=== PATIENT | female | born 1995 | race Caucasian/White ===

== ENCOUNTER 2016-07-21 17:28 | Emergency (ER) | payer BC, MEDICAID ==
[~2016-07-21] VITALS: Ht 160 cm; Wt 59.0 kg
[~2016-07-21 17:28] MED LIST: ALBU17AE3; CEPH-507 PO; CETI10TA17 PO; FLT05NA16; HYDR-757 PO; INDO25CA PO; LEVE500T99 PO; MELO7.5T46 PO; MNTL10T PO; NAPR500T PO; OMEP40CA36 PO; PRD20T PO; SERT25TA PO; SULF1TAB38 PO; TOPI100T PO; TPR100T PO
--- OUTSIDE RECORDS SUMMARY | 2016-07-21 17:33 | XMS REPORT | Continuity of Care Document ---
Author Author [facility] Organization [facility] Address Unknown Phone Unavailable Care Team Providers Care Chemicals Distiller Name Role Phone NO, LOCAL PHYSICIAN PCP Unavailable Advance Directives Directive Response Recorded Date/Time Advance Directives No 12/18/15 3:04pm Organ Donor No 12/18/15 3:04pm Resuscitation Status Full Code 12/18/15 3:04pm Chief Complaint and Reason for Visit Chief Complaint Lower Extremity Reason for Visit Internal derangement of right knee Problems Active Problems Medical Problem Onset Date Status Contusion of foot Unknown Acute Internal derangement of right knee Unknown Acute Traumatic hematoma of foot Unknown Acute Medications Current Home Medications Medication Dose Units Route Directions Days/Qty Instructions Start Date Meloxicam 7.5 Mg 7.5 Mg Oral Daily 30 12/18/15 Past Home Medications Medication Directions Ordered Status Hydrocodone Bit/Acetaminophen 1 Each Tablet, 1 Ea Oral Every 6 Hours as needed for Severe Pain 11/29/14 Discontinued Social History Social History Problem Response Recorded Date/Time Alcohol Use Denies Use 12/18/2015 3:04pm Recreational Drug Use No 12/18/2015 3:04pm Recent Foreign Travel No 12/18/2015 3:04pm Recent Infectious Disease Exposure No 12/18/2015 3:04pm Hospitalization with Isolation Denies 12/18/2015 3:04pm Smoking Status Never a Smoker 12/18/2015 3:04pm Query Response Start Date Stop Date Smoking Status Never a Smoker Hospital Discharge Instructions No hospital discharge instructions. Plan of Care Discharge Date 12/18/15 3:39pm Disposition 01 HOME, SELF-CARE Condition at Discharge Improved Instructions/Education Provided NO INSTRUCTIONS GIVEN Prescriptions See Medication Section Referrals CHRISTOPH ALVAREZ MD, RICHARD A DO - NO,LOCAL PHYSICIAN - Primary Care Physician YOLI VILLEDA FLOYD R MD - MARILYN,KEENAN Wick MD - Additional Instructions/Education 1. Call one of the physicians listed to make an appointment to be seen to schedule a MRI of your knee 2. Medication as directed 3. All discharge instructions reviewed with patient and/or family. Voiced understanding. Functional Status No functional status results. Allergies, Adverse Reactions, Alerts Allergen Type Severity Reaction Status Last Updated paroxetine ([id number]) Allergy Unknown Active 11/29/14 Latex Allergy Unknown Active 11/03/10 Immunizations No immunization records. Vital Signs Acute Vital Signs Vital Response Date/Time Temperature (Fahrenheit) 97.4 degrees F (97.6 - 99.5) 12/18/2015 3:04pm Temperature (Calculated Celsius) 36.98981 degrees C (36.4 - 37.5) 12/18/2015 3:04pm Temperature Source Temporal 12/18/2015 3:04pm Pulse Rate (Adolescent 12-19yrs) 108 bpm (56 - 106) 12/18/2015 3:39pm O2 Sat by Pulse Oximetry 98 % (88 - 100) 12/18/2015 3:39pm Respiratory Rate (Adolescent 12-19yrs) 20 bpm (15 - 20) 12/18/2015 3:39pm Blood Pressure / Blood Pressure Systolic (Adolescent 12-19yrs) 121 mm Hg (115 - 120) 2015 3:39pm Pain Pain Intensity 10 12/18/2015 3:04pm Height (Feet) 5 feet 12/18/2015 3:04pm Height (Inches) 4 inches 12/18/2015 3:04pm Height (Calculated Centimeters) 162.096073 cm 12/18/2015 3:04pm Weight (Pounds) 139 pounds 12/18/2015 3:04pm Weight (Calculated Kilograms) 63.900727 kilograms 12/18/2015 3:04pm Calculated BMI 23.86 12/18/2015 3:04pm Results No known relevant diagnostic tests, laboratory data and/or discharge summary. Procedures No known history of procedures. Encounters Encounter Location Arrival/Admit Date Discharge/Depart Date Attending Provider Departed Emergency Room [facility] 12/18/15 2:57pm 12/17 3:39pm DEIRDRE CORDON APRN Registered Referred [facility] 12/09/15 3:27pm MATIAS RUANO Recent Diagnosis
[2016-07-21] MEDS ORDERED: BUPIVACAINE 0.5% 30 ML (SENSORCAINE) VIAL ONE (17:39)
[2016-07-21] MEDS ORDERED: TRIM/SULFAMETH 160/800 (SEPTRA DS) TAB PO ONE (17:45)
[2016-07-21] MEDS ORDERED: BUPIVACAINE 0.5% 30 ML (SENSORCAINE) VIAL INJ ONE (17:45)
[2016-07-21] MEDS ORDERED: SULF1TAB35 PO (17:46)
--- NOTE | 2016-07-21 17:46 | ED Upper Extremity ---
General Stated Complaint: FINGER INFECTION Source: patient Exam Limitations: no limitations History of Present Illness Time seen by provider: 17:44 Initial Comments Pain redness and swelling to the left thumb for 1.5 weeks. No known infection. She states that she has intermittently drained pus from this. Onset: last week Severity: moderate Pain/Injury Location: left thumb Method of Injury: unknown Modifying Factors: Worse With Movement Allergies and Home Medications Allergies Coded Allergies: latex (Unverified Allergy, Unknown, 11/03/10) paroxetine (Unverified Allergy, Unknown, 11/29/14) Home Medications Naproxen 500 Mg Tablet #30 500 MG PO BID Prescribed by: DEIRDRE CORDON on 03/03/16 1949 Sulfamethoxazole/Trimethoprim 1 Each Tablet #14 1 EACH PO BID Prescribed by: DEIRDRE CORDON on 07/21/16 1746 Topiramate 100 Mg Tablet 100 MG PO BID (Reported) Constitutional: see HPI EENTM: see HPI Respiratory: no symptoms reported Cardiovascular: no symptoms reported Genitourinary: no symptoms reported Musculoskeletal: no symptoms reported Skin: no symptoms reported Psychiatric/Neurological: No Symptoms Reported Past Ivmghpe-Iahkhk-Iiauxa Hx Patient Social History Recent Foreign Travel: No Contact w/Someone Who Travel: No Recent Hopitalizations: No Immunizations Up To Date Tetanus Booster (TDap): Less than 5yrs PED Vaccines UTD: Yes Seasonal Allergies Seasonal Allergies: No Surgeries HX Surgeries: Yes (RT KNEE SCOPE, EGD) Surgeries: Orthopedic Respiratory Hx Respiratory Disorders: No Cardiovascular Hx Cardiac Disorders: No Neurological Hx Neurological Disorders: Yes (essential tremors) Neurological Disorders: Seizure Disorder Reproductive System Hx Reproductive Disorders: No Genitourinary Hx Genitourinary Disorders: No Gastrointestinal Hx Gastrointestinal Disorders: No Musculoskeletal Hx Musculoskeletal Disorders: No Endocrine Hx Endocrine Disorders: No HEENT HX ENT Disorders: No Cancer Hx Cancer: No Psychosocial Hx Psychiatric Problems: Yes Behavioral Health Disorders: Depression Integumentary HX Skin/Integumentary Disorder: No Blood Transfusions Hx Blood Disorders: No Physical Exam Vital Signs Vital Sign - Last 12Hours 07/21/16 07/21/16 17:48 17:57 Temp 98.3 Pulse 70 Resp 16 B/P 132/70 O2 Delivery Room Air Capillary Refill : General Appearance: WD/WN no apparent distress HEENT: PERRL/EOMI normal ENT inspection Neck: non-tender full range of motion Respiratory: no respiratory distress no accessory muscle use Elbow/Forearm: normal inspection, non-tender, no evidence of injury Wrist: Yes normal inspection, Yes non-tender, Yes no evidence of injury Hand: Left, swelling (erythema and fluctuance over the eponychial/paronychIUM of left thumb) Neurologic/Psychiatric: alert normal mood/affect oriented x 3 Skin: normal color warm/dry I&D : Blade Size: 11 Progress Digital block done using 2 mL of 0.5 percent Marcaine without epinephrine. Incision was then made with 11 blade scalpel over the most fluctuant portion of this paronychia. Culture was collected and sent to lab so there was really no purulence expressed. Area then covered with gauze and Coban. Progress/Results/Core Measures Results/Orders My Orders Orders-DEIRDRE CORDON APRN Wound Culture (07/21/16 17:43) Bupivacaine 0.5% Injection (Sensorcaine (07/21/16 17:45) Sulfamethoxazole/Trimet Ds Tab (Bactrim (07/21/16 17:45) Bupivacaine 0.5% Injection (Sensorcaine (07/21/16 17:39) Medications Given in ED Current Medications Medications Dose Ordered Sig/Esther Route Start Time Stop Time Status Last Admin Dose Admin Bupivacaine HCl 30 ml STK-MED ONCE .ROUTE 07/21/16 17:39 07/21/16 17:46 DC 07/21/16 17:48 30 ML Vital Signs/I&O Vital Sign - Last 12Hours 07/21/16 07/21/16 17:48 17:57 Temp 98.3 97.5 Pulse 70 Resp 16 B/P 132/70 O2 Delivery Room Air Departure Impression Impression: Primary Impression: Paronychia of finger Qualified Code: L03.012 - Cellulitis of left finger Disposition: 01 HOME, SELF-CARE Condition: Stable Departure-Patient Inst. Decision time for Depature: 17:45 Referrals: NO,LOCAL PHYSICIAN (PCP/Family) Primary Care Physician Patient Instructions: Paronychia Add. Discharge Instructions: 1. Return to ER for any concerns 2. Follow-up with your doctor next week 3. Antibiotics as directed Scripts Sulfamethoxazole/Trimethoprim (Bactrim Ds Tablet)1 Each Tablet1 Each PO BID #14 TAB Prov:DEIRDRE CORDON APRN 07/21/16 DEIRDRE CORDON APRN 12, 2017 17:46
[2016-07-21 18:15] VITALS: BP 128/70
== END 2016-07-21 18:15 | disposition home or self-care (01) ==
LOC: EDUNIT# 17:28 → ER 17:30
DX: L03.012 Cellulitis of left finger (principal)
CPT/HCPCS: 10060; 64450; 87070; 87077; 87186; 87205

== ENCOUNTER → 2017-04-19 | Outpatient (CLI) | payer OTHER ==
[~2017-04-19] MED LIST changes: +SULF1TAB35 PO
--- NOTE | 2017-04-19 16:30 | Diagnostic Imaging Report ---
First trimester OB ultrasound. INDICATION: Spotting. FINDINGS: There is a normal-appearing single intrauterine . An embryo is seen with cardiac activity at 174 beats per minute. The crown-rump length is at 10 weeks and 5 days. RONEN is 11/10/17. IMPRESSION: Live single intrauterine . Dictated by: Dictated on workstation # [id number]
== END ==
LOC: RAD 15:19
PROVIDERS: ATTEND Family Medicine
DX: O46.91 Antepartum hemorrhage, unspecified, first trimester (principal); Z3A.10 10 weeks gestation of pregnancy
CPT/HCPCS: 76801

== ENCOUNTER → 2017-06-12 | Outpatient (CLI) | payer MEDICAID ==
[~2017-06-12] MED LIST changes: +METO5TAB75 PO
--- NOTE | 2017-06-12 16:16 | Diagnostic Imaging Report ---
INDICATION: survey. TECHNIQUE: Multiple real-time grayscale images were obtained over the gravid uterus. COMPARISON: 04/19/2017 FINDINGS: heart rate is 143 beats per minute. The amniotic fluid is normal. The placenta is fundal and anterior with no placenta previa. The lower uterine segment demonstrates closed cervix, 4.3 cm in length. The cord insertion, stomach, bladder, two umbilical arteries, posterior fossa and lateral ventricles appear unremarkable. The four-chamber view demonstrates a tiny mild focus of hypodensity which could relate to an echogenic focus of the left ventricle, a soft marker for aneuploidy. The upper and mid spine is normal in appearance. The lower spine is not well demonstrated. The maternal adnexa are obscured by bowel gas. Biometrical measurements are as follows: Biparietal 4.33 cm, age 19 weeks 1 days. Head circumference 15.90 cm, age 18 weeks 6 days. Abdominal circumference 12.26 cm, age 18 weeks 0 days. Femur length 2.90 cm, age 19 weeks 0 days. Sonographic estimate age: 18 weeks 6 days. Sonographic estimated date of delivery: 11-07-17. Estimated Weight: 240 gm (+/- 35 gm). LMP percentile: 46%. heart rate: 143 beats per minute. number: 1 of 1. IMPRESSION: 1. The lower most aspect of the spine is not well demonstrated due to position. A followup exam is recommended within 2 weeks to reevaluate. 2. Questionable tiny echogenic focus in the left ventricle. This is a soft marker that could be associated with aneuploidy. Correlate clinically. Dictated by: Dictated on workstation # [id number]
== END ==
LOC: RAD 12:57
PROVIDERS: ATTEND Family Medicine
DX: Z34.92 Encounter for supervision of normal pregnancy, unspecified, second trimester (principal); Z3A.18 18 weeks gestation of pregnancy
CPT/HCPCS: 76805

== ENCOUNTER 2017-06-23 19:38 | Outpatient (CLI) | payer MEDICAID ==
[~2017-06-23] VITALS: Ht 160 cm; Wt 56.8 kg
[~2017-06-23 19:38] MED LIST changes: +NAPR-1071 PO; -NAPR500T PO
--- OUTSIDE RECORDS SUMMARY | 2017-06-23 19:44 | XMS REPORT ---
Author Author ISRAEL DOWNEY Organization [facility] Address [address] [place] [address] Care Team Providers Care Route Aide Name Role Phone ISRAEL DOWNEY Unavailable PROBLEMS Type Condition ICD9-CM Code ISJ32-HE Code Onset Dates Condition Status SNOMED Code Problem Seasonal allergic rhinitis, unspecified allergic rhinitis trigger J30.2 Active 487707853 Problem Other chronic pain G89.29 Active 63134114 ALLERGIES Substance Reaction Event Type Date Status latex Unknown Non Drug Allergy November, Active SOCIAL HISTORY Never Assessed PLAN OF CARE Activity Details Follow Up prn Reason: VITAL SIGNS Height 63 in 2016-12-02 Weight 130.2 lbs 2016-12-02 Temperature 98.8 degrees Fahrenheit 2016-12-02 Heart Rate 84 bpm 2016-12-02 Respiratory Rate 22 2016-12-02 BMI 23.06 kg/m2 2016-12-02 Blood pressure systolic 100 mmHg 2016-12-02 Blood pressure diastolic 70 mmHg 2016-12-02 MEDICATIONS Unknown Medications RESULTS Name Result Date Reference Range A1C 2016-12-02 Hemoglobin A1c 5.4 4.8-5.6 CBC 2016-12-02 WBC 7.2 3.4-10.8 RBC 4.34 3.77-5.28 Hemoglobin 13.7 11.1-15.9 Hematocrit 41.1 34.0-46.6 MCV 95 79-97 MCH 31.6 26.6-33.0 MCHC 33.3 31.5-35.7 RDW 13.1 12.3-15.4 Platelets 369 150-379 Neutrophils 53 Lymphs 34 Monocytes 9 Eos 2 Basos 1 Neutrophils (Absolute) 3.9 1.4-7.0 Lymphs (Absolute) 2.4 0.7-3.1 Monocytes(Absolute) 0.6 0.1-0.9 Eos (Absolute) 0.1 0.0-0.4 Baso (Absolute) 0.1 0.0-0.2 Immature Granulocytes 1 Immature Grans (Abs) 0.0 0.0-0.1 CMP 2016-12-02 Glucose, Serum 91 65-99 BUN 10 6-20 Creatinine, Serum 0.58 0.57-1.00 eGFR If NonAfricn Am 133 >59 eGFR If Africn Am 153 >59 BUN/Creatinine Ratio 17 9-23 Sodium, Serum 139 134-144 Potassium, Serum 4.6 3.5-5.2 Chloride, Serum 102 96-106 Carbon Dioxide, Total 22 18-29 Calcium, Serum 9.4 8.7-10.2 Protein, Total, Serum 6.4 6.0-8.5 Albumin, Serum 4.5 3.5-5.5 Globulin, Total 1.9 1.5-4.5 A/G Ratio 2.4 1.2-2.2 Bilirubin, Total 0.6 0.0-1.2 Alkaline Phosphatase, S 54 39-117 AST (SGOT) 12 0-40 ALT (SGPT) 7 0-32 PROCEDURES Procedure Date Ordered Result Body Site GLYCATED HEMOGLOBIN TEST December 02, 2016 COMPLETE CBC W/AUTO DIFF WBC December 02, 2016 COMPREHEN METABOLIC PANEL December 02, 2016 VENIPUNCT, ROUTINE* December 02, 2016 IMMUNIZATIONS No Known Immunizations MEDICAL (GENERAL) HISTORY Type Description Date Medical History epilepsy Medical History asthma Medical History diabetes type 1 Surgical History Right knee scope Surgical History EGD 2012 Surgical History tonsilectomy Surgical History wisdom teeth Hospitalization History wisdom teeth Hospitalization History grand mal seizure x 1 week in 2nd grade
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
[2017-06-23 20:12] VITALS: BP 118/64
[2017-06-23 20:18] LABS: BILIRUBIN,URINE NEGATIVE (NEGATIVE); KETONES,URINE NEGATIVE (NEGATIVE); LEUKOCYTE ESTERASE ,URINE 1+ (NEGATIVE); NITRITE,URINE NEGATIVE (NEGATIVE); PH,URINE 7 (5-9); PROTEIN,URINE NEGATIVE (NEGATIVE); UROBILINOGEN,URINE NORMAL (NORMAL)
[2017-06-23] MEDS ORDERED: PREN-142 PO (20:27)
[2017-06-23 20:29] LABS: WBC,URINE RARE /HPF
--- NOTE | 2017-06-28 11:18 | Physician Query-Final Dx ---
MARILYNN LAURA 06/28/17 1118: Clinic Account Progress/Dx Physician Query: Please give diagnosis Date of Service Jun 23, 2017 at 19:54 ZOFIA ARGUETA MD 07/06/17 0740: Clinic Account Progress/Dx DIAGNOSIS: Diagnosis 1. Decreased movement 2. IUP at 24 weeks. MARILYNN LAURA Jun 28, 2017 11:18 ZOFIA ARGUETA MD Jul 06, 2017 07:40
== END 2017-06-23 20:50 | disposition home or self-care (01) ==
LOC: EDUNIT# 19:38 → ER 19:40 → EDSTATUS 19:54 → WSo 19:54 → LDRP 19:55 → WSo 20:50
PROVIDERS: ATTEND Family Medicine
DX: O36.8120 Decreased fetal movements, second trimester, not applicable or unspecified (principal); Z3A.24 24 weeks gestation of pregnancy
CPT/HCPCS: 81000; 99212

== ENCOUNTER 2017-08-02 16:24 | Emergency (ER) | payer MEDICAID ==
[~2017-08-02] VITALS: Ht 160 cm; Wt 59.0 kg
[~2017-08-02 16:24] MED LIST changes: +PREN-142 PO
--- NOTE | 2017-08-02 16:48 | ED GI ---
General Chief Complaint: Rect Problems Stated Complaint: HEMROID History of Present Illness Date Seen by Provider: Aug 02, 2017 Time Seen by Provider: 16:50 Initial Comments 22-year-old female Patient is 26 weeks gestation. She reports no bowel movement for 10 days. She is having mild abdominal pain. She is feeling movement approximately every 4 hours. She has some lactose intolerance and usually has diarrhea after drinking milk. She is taking a vitamin, it is the same one she has been taking since beginning of the . She has no history of hemorrhoids in the past, she noticed tenderness and fullness, with external hemorrhoid present yesterday. She attempted to see Dr. Argueta today and was referred to the emergency department. She is concerned the hemorrhoid is "blocking ability to pass stools." Timing/Duration: Other (10 days) Allergies and Home Medications Allergies Coded Allergies: divalproex sodium (Verified Allergy, Unknown, 06/23/17) latex (Unverified Allergy, Unknown, 11/03/10) paroxetine (Unverified Allergy, Unknown, 11/29/14) Home Medications Metoclopramide HCl 5 Mg Tablet, 5 MG PO Q6H PRN for NAUSEA/VOMITING-1ST LINE for 30 Days, #90 Prescribed by: BELINDA AKINS on 05/12/17 0843 Vit No.124/Iron/FA 1 Each Tablet, 1 EACH PO DAILY, (Reported) Review of Systems Constitutional: no symptoms reported, see HPI Gastrointestinal: See HPI, Abdominal Pain, Constipated, Other (external hemorrhoid) All Other Systems Reviewed Negative Unless Noted: Yes Past Ukenjxv-Aygpiz-Ojlxfu Hx Patient Social History Recent Foreign Travel: No Contact w/Someone Who Travel: No Recent Hopitalizations: No Immunizations Up To Date Tetanus Booster (TDap): Less than 5yrs PED Vaccines UTD: Yes Date of Influenza Vaccine: Feb 21, 2017 Seasonal Allergies Seasonal Allergies: No Surgeries Surgeries: Orthopedic Neurological Neurological Disorders: Seizure Disorder Reproductive System Hx Reproductive Disorders: No Psychosocial Behavioral Health Disorders: Depression Reviewed Nursing Assessment Reviewed/Agree w Nursing PMH: Yes Physical Exam Vital Signs VS - Last 72 Hours, by Label 08/02/17 16:51 Temp 98.1 Pulse 70 Resp 16 B/P (MAP) 100/50 (67) Pulse Ox 98 O2 Delivery Room Air Capillary Refill : General Appearance: WD/WN, no apparent distress Respiratory: chest non-tender, lungs clear, normal breath sounds Cardiovascular: normal peripheral pulses, regular rate, rhythm, no murmur Gastrointestinal: normal bowel sounds, non tender, soft, distended (compatible with third trimester ), No rebound Rectal: normal exam, normal rectal tone, hemorrhoids (0.5 cm, tender, non- inflammed, soft, right external. No impacted stool in rectum ), tenderness Extremities: normal range of motion, non-tender, no calf tenderness, normal capillary refill Neurologic/Psychiatric: no motor/sensory deficits, alert, normal mood/affect, oriented x 3 Skin: normal color, warm/dry Progress/Results/Core Measures Results/Orders Vital Signs/I&O Vital Sign - Last 12Hours 08/02/17 16:51 Temp 98.1 Pulse 70 Resp 16 B/P (MAP) 100/50 (67) Pulse Ox 98 O2 Delivery Room Air Progress Note : Time: 16:50 Progress Note Initial evaluation, heart tones 140s to 150s. 1700 discussed at length with the patient and her mother the importance of increasing fluid in her diet, high fiber diet, xdpr-wdr-zwutjga hydrocortisone for inflamed hemorrhoid, stool softener, warm moist compresses, and avoid straining. Sits baths were recommended, the patient reports that she does not have a bath tub. Discharge instructions and return precautions reviewed at length with the patient and her mother, all questions answered. Departure Impression Impression: Primary Impression: Constipation during Qualified Codes: O99.613 - Diseases of the digestive system complicating , third trimester; K59.00 - Constipation, unspecified Additional Impression: Hemorrhoid Qualified Codes: K64.0 - First degree hemorrhoids Disposition: 01 HOME, SELF-CARE Condition: Stable Departure-Patient Inst. Decision time for Depature: 17:15 Referrals: ZOFIA ARGUETA MD (PCP/Family) Primary Care Physician Patient Instructions: Constipation, Adult (DC), Hemorrhoids (DC), High Fiber Diet Add. Discharge Instructions: Increase water intake while awake, 16 ounces every 2 hours. Ambulates 10 minutes every hour while awake. Warm moist compresses to hemorrhoid, 10 minutes every 2 hours. Increase high-fiber foods in diet. Colace snug-eth-idbasij stool softener, 1 tablet twice daily until having regular stools. Avoid straining or sitting on toilet for prolonged period of time. Hydrocortisone cream, applied to hemorrhoid 3-4 times daily. Follow-up with Dr. Argueta if no improvement in symptoms in the next 2 days. Return to emergency department for increased abdominal pain, lack of movement, vaginal bleeding or discharge, or new problems. All discharge instructions reviewed with patient and/or family. Voiced understanding. Copy Copies To 1: ZOFIA ARGUETA MD, AMY ARNP Aug 02, 2017 16:48
[2017-08-02 17:25] VITALS: BP 100/50
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
== END 2017-08-02 17:25 | disposition home or self-care (01) ==
LOC: EDUNIT# 16:24 → ER 16:25
DX: O99.612 Diseases of the digestive system complicating pregnancy, second trimester (principal); K64.8 Other hemorrhoids; O99.342 Other mental disorders complicating pregnancy, second trimester; F32.9 Major depressive disorder, single episode, unspecified; O99.352 Diseases of the nervous system complicating pregnancy, second trimester; G40.909 Epilepsy, unspecified, not intractable, without status epilepticus; Z3A.26 26 weeks gestation of pregnancy
CPT/HCPCS: 99282

== ENCOUNTER → 2017-08-24 | Outpatient (CLI) | payer MEDICAID | LOC: LAB 08:08 | PROVIDERS: ATTEND Family Medicine | DX: Z34.93 Encounter for supervision of normal pregnancy, unspecified, third trimester (principal) | CPT/HCPCS: 36415; 82951; 82952; 82962 ==

== ENCOUNTER → 2017-08-31 | Outpatient (CLI) | payer MEDICAID ==
--- NOTE | 2017-08-31 15:25 | Diagnostic Imaging Report ---
INDICATION: Followup heart and spine. TECHNIQUE: Multiple real-time grayscale images were obtained over the gravid uterus. COMPARISON: 06/12/2017. FINDINGS: There is a single live fetus in a cephalic presentation. The placenta is posterior. The amniotic fluid volume is normal. heart rate was recorded at 143 beats per minute. spine is unremarkable on today's study. The previously noted echogenic focus in the left ventricle is not appreciated on today's exam. Biometrical measurements are as follows: Biparietal 7.9 cm, age 31 weeks 4 days. Head circumference 28.4 cm, age 31 weeks 1 days. Abdominal circumference 26.0 cm, age 30 weeks 2 days. Femur length 5.5 cm, age 29 weeks 0 days. Sonographic estimate age: 30 weeks 4 days. Sonographic estimated date of delivery: 11/05/17. Estimated Weight: 1485 gm (+/- 217 gm). LMP percentile: 40%. heart rate: 143 beats per minute. number: 1 of 1. IMPRESSION: Single live IUP of approximately 30-31 weeks gestational age demonstrating normal interval growth when compared with prior exam. spine and heart are unremarkable on today's exam. Dictated by: Dictated on workstation # [id number]
== END ==
LOC: RAD 11:58
PROVIDERS: ATTEND Family Medicine
DX: Z34.93 Encounter for supervision of normal pregnancy, unspecified, third trimester (principal); Z3A.30 30 weeks gestation of pregnancy
CPT/HCPCS: 76816

== ENCOUNTER 2017-10-03 08:40 | Outpatient (CLI) | payer MEDICAID ==
[~2017-10-03] VITALS: Ht 160 cm; Wt 65.3 kg
[2017-10-03 09:04] VITALS: BP 117/69
[2017-10-03] MEDS ORDERED: LACTATED RINGERS 1,000 ML IV ONE (09:48)
[2017-10-03] MEDS: LACTATED RINGERS 1,000 ML IV SCH ×2 (10:02→14:35)
[2017-10-03] MEDS: TERBUTALINE INJ 1 MG/ML (BRETHINE) AMP SC SCH ×2 (10:59→12:16)
[2017-10-03 12:19] VITALS: BP 123/66
[2017-10-03 14:03] VITALS: BP 114/66
[2017-10-03] MEDS ORDERED: ACETAMINOPHEN 500 MG TAB (TYLENOL) ONE (14:29)
[2017-10-03] MEDS ORDERED: ACETAMINOPHEN 500 MG TAB (TYLENOL) PO PRN (14:30)
[2017-10-03] MEDS ORDERED: cefTRIAXone INJECTION 1,000 MG in NS (IVPB) 100 ML IV ONE (16:30)
[2017-10-03 16:40] LABS: BASOPHILS % (AUTO) 0 % (0-10); EOSINOPHILS % (AUTO) 0 % (0-10); HEMATOCRIT 31 % (35-52); HEMOGLOBIN 10.5 G/DL (11.5-16.0); LYMPHOCYTES # (AUTO) 2.2 X 10^3 (1.0-4.0); LYMPHOCYTES % (AUTO) 13 % (12-44); MEAN CORPUSCULAR HEMOGLOBIN 32 PG (25-34); MEAN CORPUSCULAR HGB CONC 34 G/DL (32-36); MEAN CORPUSCULAR VOLUME 93 FL (80-99); MEAN PLATELET VOLUME 9.3 FL (7.4-10.4); MONOCYTES # (AUTO) 0.8 X 10^3 (0.0-1.0); MONOCYTES % (AUTO) 5 % (0-12); NEUTROPHILS % (AUTO) 82 % (42-75); PLATELET COUNT 312 10^3/uL (130-400); RED BLOOD COUNT 3.29 10^6/uL (4.35-5.85); RED CELL DISTRIBUTION WIDTH 12.7 % (10.0-14.5); WHITE BLOOD COUNT 17.1 10^3/uL (4.3-11.0)
--- NOTE | 2017-10-03 17:02 | Diagnostic Imaging Report ---
INDICATION: Fall with pelvic cramping. FINDINGS: Limited obstetric ultrasound was performed. There is a single live fetus in a cephalic presentation. The placenta is to the right. No definite placental abruption or retroplacental fluid collection is seen. The amniotic fluid volume is normal. heart rate is recorded at 150 beats per minute. IMPRESSION: Limited obstetric ultrasound without gross abnormality. Dictated by: Dictated on workstation # [id number]
[2017-10-03 17:08] LABS: BAND NEUTROPHILS 2 %; BASOPHILS % (MANUAL) 0 %; EOSINOPHILS % (MANUAL) 0 %; LYMPHOCYTES % (MANUAL) 15 %; MONOCYTES % (MANUAL) 4 %; NEUTROPHILS % (MANUAL) 79 %; RBC MORPH NORMAL
[2017-10-03 19:20] VITALS: BP 112/72
[2017-10-03 19:45] VITALS: BP 112/72
[2017-10-03] MEDS ORDERED: ZOLPIDEM 5 MG (AMBIEN) TAB PO NR (21:00)
--- NOTE | 2017-10-04 10:18 | Physician Query-Final Dx ---
MARILYNN LAURA 10/04/17 1018: Clinic Account Progress/Dx Physician Query: Please give diagnosis Date of Service Oct 03, 2017 at 08:40 ZOFIA ARGUETA MD 10/05/17 0714: Clinic Account Progress/Dx DIAGNOSIS: Diagnosis 1. Uterine irritability--non labor 2. IUP at 34 weeks MARILYNN LAURA Oct 04, 2017 10:18 ZOFIA ARGUETA MD Oct 05, 2017 07:14
== END 2017-10-03 19:45 | disposition home or self-care (01) ==
LOC: WSo 08:40 → LDRP 08:40 → WSo 19:45
PROVIDERS: ATTEND Family Medicine
DX: O99.89 Other specified diseases and conditions complicating pregnancy, childbirth and the puerperium (principal); N85.8 Other specified noninflammatory disorders of uterus; Z3A.34 34 weeks gestation of pregnancy
CPT/HCPCS: 36415; 76815; 85007; 85027; 96361; 96372; 96374; 99214

== ENCOUNTER 2017-10-07 18:51 | Outpatient (CLI) | payer MEDICAID ==
[~2017-10-07] VITALS: Ht 160 cm; Wt 63.5 kg
[2017-10-07 19:05] VITALS: BP 107/72
--- NOTE | 2017-10-09 12:11 | Physician Query-Final Dx ---
MARILYNN LAURA 10/09/17 1211: Clinic Account Progress/Dx Physician Query: Please give diagnosis Date of Service Oct 07, 2017 at 18:51 ZOFIA ARGUETA MD 10/10/17 0716: Clinic Account Progress/Dx DIAGNOSIS: Diagnosis 1. IUP at 35 weeks non labor MARILYNN LAURA Oct 09, 2017 12:11 ZOFIA ARGUETA MD Oct 10, 2017 07:16
== END 2017-10-07 20:11 | disposition home or self-care (01) ==
LOC: WSo 18:51 → LDRP 18:52 → WSo 20:11
PROVIDERS: ATTEND Family Medicine
DX: O47.03 False labor before 37 completed weeks of gestation, third trimester (principal); Z3A.35 35 weeks gestation of pregnancy
CPT/HCPCS: 99213

== ENCOUNTER 2017-10-25 22:19 | Inpatient (IN) | payer MEDICAID ==
[2017-10-25] VITALS (13 sets, daily range): BP systolic 106–135; BP diastolic 63–82
[~2017-10-25] VITALS: Ht 160 cm; Wt 64.9 kg
[2017-10-25] MEDS ORDERED: LACTATED RINGERS 1,000 ML IV ONE ×3 (22:39→23:14)
[2017-10-25] MEDS ORDERED: D5 LR IV SOLUTION 1,000 ML IV ONE (22:39)
[2017-10-25] MEDS ORDERED: D5 LR IV SOLUTION 1,000 ML IV SCH (22:51)
[2017-10-25] MEDS ORDERED: MINERAL OIL CONCENTRATE 99.9% 15 ML UDC TOP PRN (23:00)
[2017-10-25 23:05] LABS: BASOPHILS # (AUTO) 0.1 10^3/uL (0.0-0.1); BASOPHILS % (AUTO) 1 % (0-10); EOSINOPHILS # (AUTO) 0.1 10^3/uL (0.0-0.3); EOSINOPHILS % (AUTO) 1 % (0-10); HEMATOCRIT 32 % (35-52); LYMPHOCYTES # (AUTO) 2.9 X 10^3 (1.0-4.0); LYMPHOCYTES % (AUTO) 23 % (12-44); MEAN CORPUSCULAR HEMOGLOBIN 31 PG (25-34); MEAN CORPUSCULAR HGB CONC 34 G/DL (32-36); MEAN CORPUSCULAR VOLUME 92 FL (80-99); MEAN PLATELET VOLUME 10.6 FL (7.4-10.4); MONOCYTES % (AUTO) 8 % (0-12); NEUTROPHILS # (AUTO) 8.7 X 10^3 (1.8-7.8); NEUTROPHILS % (AUTO) 68 % (42-75); PLATELET COUNT 318 10^3/uL (130-400); RED BLOOD COUNT 3.54 10^6/uL (4.35-5.85); RED CELL DISTRIBUTION WIDTH 13.1 % (10.0-14.5); WHITE BLOOD COUNT 12.8 10^3/uL (4.3-11.0)
[2017-10-25] MEDS ORDERED: SUFENTA 0.6MCG/ML BUPIVA 0.125 100 ML ONE (23:08)
[2017-10-25] MEDS ORDERED: fentaNYL INJECTION 100 MCG/2 ML AMP ONE (23:11)
[2017-10-25] MEDS ORDERED: BUPIVACAINE 0.25% 30 ML (SENSORCAINE) VIAL ONE (23:11)
[2017-10-25] MEDS ORDERED: LIDOCAINE PF 2% 5 ML (XYLOCAINE) VIAL ONE (23:11)
[2017-10-25] MEDS ORDERED: NALOXONE 0.4 MG/ML 1 ML (NARCAN) VIAL IV PRN (23:15)
[2017-10-25] MEDS ORDERED: ONDANSETRON 4 MG/2 ML (SDV) Z0FRAN IV PRN (23:15)
[2017-10-25] MEDS ORDERED: EPIDURAL (SUFENTA 0.6MCG/ML BUPIVA 0.125%) 100 ML BAG EPI PRN (23:15)
[2017-10-26] VITALS (31 sets, daily range): BP systolic 90–158; BP diastolic 55–75
[2017-10-26] MEDS ORDERED: OXYTOCIN/NORMAL SALINE 500 ML IV ONE (03:30)
[2017-10-26] MEDS ORDERED: OXYTOCIN/NORMAL SALINE 500 ML IV SCH (05:10)
--- NOTE | 2017-10-26 05:10 | History & Physical-OB ---
OB - Chief Complaint & HPI Date/Time Date of Admission: Date of Admission: Oct 25, 2017 at 22:35 Time Seen by Provider: 04:00 Chief Complaint/History OB-Reason for Admission/Chief: Rupture of Membranes Hx : 1 Hx Para: 0 Expected Date of Delivery: November 11, 2017 Gestational Age in Weeks: 37 Gestational Age in Days: 5 Other reason for admission: SROM Admission Nurse Assessment Rev: Yes History of Labs GBS negative Allergies and Home Medications Allergies Coded Allergies: divalproex sodium (Verified Allergy, Unknown, 06/23/17) latex (Verified Allergy, Unknown, 10/25/17) paroxetine (Verified Allergy, Unknown, 10/25/17) Home Medications Vit No.124/Iron/FA 1 Each Tablet, 1 EACH PO DAILY, (Reported) Patient Home Medication List Home Medication List Reviewed: Yes OB - History Hx of Present Care: Yes Ultrasounds: Normal mid trimester US Obstetrical Complications: None Medical Complications: None Delivery History Hx Blood Disorders: No Patient Past Medical History PMHx: Seizure disorder (reported last seizure 2013), not currently on medication Asthma Reported h/o "diet controlled type I diabetes" Social History/Family History Recent Infectious Disease Expo: No Alcohol Use: Denies Use Recreational Drug Use: No Immunizations Tetanus Booster (TDap): Less than 5yrs Date of Influenza Vaccine: Feb 21, 2017 OB - Admission Exam Physical Exam Vitals: Vital Signs 10/26/17 10/26/17 10/26/17 01:20 02:35 03:05 Temp 98.9 Pulse 104 Resp 16 B/P (MAP) 102/68 (79) Pulse Ox 98 O2 Delivery Room Air HEENT: Moist Membranes Heart: Rhythm Normal Lungs: Clear Abdomen: Gravid Cervical Dilatation: 2cm (on admission) Effacement: 75% Station: -2 Membranes: Ruptured Amniotic Fluid: Clear Heart Rate: 130's Accelerations: Accelerations Present Decelerations: No Decelerations Short Term Variability: Present Detention Variability: Average (6-25) Contractions on Admission: < 5 Minutes Apart Labs Laboratory Tests Test 10/25/17 22:50 Range/Units White Blood Count 12.8 H 4.3-11.0 10^3/uL Red Blood Count 3.54 L 4.35-5.85 10^6/uL Hemoglobin 11.0 L 11.5-16.0 G/DL Hematocrit 32 L 35-52 % Mean Corpuscular Volume 92 80-99 FL Mean Corpuscular Hemoglobin 31 25-34 PG Mean Corpuscular Hemoglobin Concent 34 32-36 G/DL Red Cell Distribution Width 13.1 10.0-14.5 % Platelet Count 318 130-400 10^3/uL Mean Platelet Volume 10.6 H 7.4-10.4 FL Neutrophils (%) (Auto) 68 42-75 % Lymphocytes (%) (Auto) 23 12-44 % Monocytes (%) (Auto) 8 0-12 % Eosinophils (%) (Auto) 1 0-10 % Basophils (%) (Auto) 1 0-10 % Neutrophils # (Auto) 8.7 H 1.8-7.8 X 10^3 Lymphocytes # (Auto) 2.9 1.0-4.0 X 10^3 Monocytes # (Auto) 1.0 0.0-1.0 X 10^3 Eosinophils # (Auto) 0.1 0.0-0.3 10^3/uL Basophils # (Auto) 0.1 0.0-0.1 10^3/uL OB - Assessment/Plan/Diagnosis Assessment Assessment: rupture of membranes (at 37w5d) Admission Dx 1. IUP at term 37w5d Admission Status: Inpatient Order (span 2 midnights) Reason for Inpatient Admission: L&D Plan Plan: Expectant Management Other Plan patient desires epidural ZOFIA ARGUETA MD Oct 26, 2017 05:10
[2017-10-26] MEDS ORDERED: MEASLES,MUMPS,RUBELLA 1 EA INJ SQ ONE (05:15)
[2017-10-26] MEDS ORDERED: WITCH HAZEL(TUCKS) 40 EA JAR TOP PRN (05:15)
[2017-10-26] MEDS ORDERED: TETANUS,DIPTH,PERTUSS P/F (BOOSTRIX) 0.5 ML VIAL IM ONE (05:15)
[2017-10-26] MEDS ORDERED: BENZOCAINE/MENTHOL (DERMOPLAST) 56 ML CAN TP PRN (05:15)
[2017-10-26] MEDS ORDERED: HYDROcodone/APAP 5 MG/325 MG (LORTAB) TAB PO PRN (05:15)
--- NOTE | 2017-10-26 05:15 | OB Labor & Delivery Record ---
L&D History Date of Service Date of Service: Oct 26, 2017 History Expected Date of Delivery: November 11, 2017 Gestational Age in Weeks: 37 Hx : 1 Hx Para: 1 Complications Events: Routine care Operative Indications (Cesarea: N/A-Vaginal Delivery Intrapartal Events: None L&D Stage1 Stage One Onset of Labor - Date: Oct 25, 2017 Onset of Labor - Time: 22:00 Monitors and Tracing Monitor Mode: External Heart Rate: 125 Station: -1 Intermediate Variability: Average (6-10) Short Term Variability: Present Presentation: Vertex Vital Signs VS - Last 72 Hours, by Label 10/25/17 10/25/17 10/25/17 10/25/17 22:30 23:15 23:21 23:25 Temp 98.6 Pulse 87 88 101 86 Resp 18 18 18 18 B/P (MAP) 135/82 (99) 108/67 (81) 114/66 (82) 109/64 (79) Pulse Ox 100 100 O2 Delivery Room Air Room Air Room Air Room Air 10/25/17 10/25/17 10/25/17 10/25/17 23:28 23:31 23:34 23:37 Pulse 87 87 89 89 Resp 18 18 18 18 B/P (MAP) 108/66 (80) 109/69 (82) 108/69 (82) 108/72 (84) Pulse Ox 100 97 97 97 O2 Delivery Room Air Room Air Room Air Room Air 10/25/17 10/25/17 10/25/17 10/25/17 23:40 23:43 23:46 23:50 Temp 98.3 Pulse 112 96 95 94 Resp 18 18 18 18 B/P (MAP) 111/78 (89) 112/70 (84) 108/71 (83) 106/70 (82) Pulse Ox 97 97 97 97 O2 Delivery Room Air Room Air Room Air Room Air 10/25/17 10/26/17 10/26/17 10/26/17 23:58 00:03 00:08 00:13 Pulse 88 98 82 85 Resp 18 18 18 18 B/P (MAP) 110/63 (79) 110/61 (77) 111/63 (79) 105/66 (79) Pulse Ox 97 98 98 98 O2 Delivery Room Air Room Air Room Air Room Air 10/26/17 10/26/17 10/26/17 10/26/17 00:18 00:35 00:50 01:05 Temp 98.3 Pulse 77 86 82 78 Resp 18 18 18 18 B/P (MAP) 106/73 (84) 112/68 (83) 107/61 (76) 104/59 (74) Pulse Ox 98 97 98 98 O2 Delivery Room Air Room Air Room Air Room Air 10/26/17 10/26/17 10/26/17 10/26/17 01:20 01:35 01:50 02:05 Pulse 88 73 86 70 Resp 18 16 16 16 B/P (MAP) 101/65 (77) 103/66 (78) 102/61 (75) 103/61 (75) Pulse Ox 98 O2 Delivery Room Air Room Air Room Air Room Air 10/26/17 10/26/17 10/26/17 10/26/17 02:20 02:35 02:50 03:05 Temp 98.9 Pulse 69 93 74 104 Resp 16 16 16 16 B/P (MAP) 97/57 (70) 96/55 (69) 105/68 (80) 102/68 (79) O2 Delivery Room Air Room Air Room Air Room Air Signs of Distress by FHT Signs of Distress no Rupture of Membranes Spontaneous Ruture of Membrane: Yes Amniotic Membrane Rupture Time: 2200 Amniotic Membrane Fluid Desc.: Clear Induction/Anesthesia Epidural Cath Placement - Time: 2327 L&D Stage2 Stage Two Stage II Date: Oct 26, 2017 Stage II Time: 04:37 Monitors and Tracing Monitor Mode: External Heart Rate: 125 Monitor Accelerations: Uniform Monitor Decelerations: None Geriatric Nurse Assistant Variability: Average (6-10) Short Term Variability: Present Position: Left Occiput Anterior Presentation: Vertex Signs of Distress by FHT Signs of Distress no Cord Descript/Complications Cord Vessel Description: 3 Vessels Delivery Type Delivery Method: Spontaneous Vaginal Anterior Shoulder: Left Episiotomy/Perineal Laceration Laceraction(s)/Extensions: Yes Episiotomy Description: Midline Sutures Used: Vicryl Condition of Infant Delivery 1 minute Comment: 9 5 minute Comment: 9 Condition of Infant Condition of : Living Exam: No Observed Abnormalities Resuscitation Resuscitation: N/A - Spontaneous Resp L&D Stage3 Stage Three Stage III Date: Oct 26, 2017 Stage III Time: 04:40 Pictocin Pitocin Administration mu/min: 12 Placenta Delivery Placenta Delivery: Spontaneous Delivery Summary Summary Estimated blood loss (mL): 200 Condition of Delivery Examined: Cervix Examined Post Hemorrhage: No Intervention Required none ZOFIA ARGUETA MD Oct 26, 2017 05:15
[2017-10-26] MEDS ORDERED: CATHETER FLUSH 10 ML SYR IV SCH ×2 (06:00)
[2017-10-26] MEDS: IBUPROFEN 600 MG (MOTRIN) TAB PO SCH ×3 (06:49→19:49)
[2017-10-26] MEDS ORDERED: PRENATAL VITAMIN 1 EA TAB PO SCH (07:00)
[2017-10-26] MEDS ORDERED: FERROUS SULF 325 MG (IRON) TAB PO SCH (09:00)
--- NOTE | 2017-10-26 11:38 | Anesthesia-Regional Post-Op ---
Regional Patient Condition Mental Status: Alert, Oriented x3 Circulation: Same as Pre-Op Headache: Absent Sensation: Full Recovery Motor Block: Absent Post Op Complications Complications None Follow Up Care/Instructions Patient Instructions None needed. Anesthesia/Patient Condition Patient is doing well, no complaints, stable vital signs, no apparent adverse anesthesia problems. No complications reported per nursing. BROOK CABALLERO CRNA Oct 26, 2017 11:38
[2017-10-27 01:58] VITALS: BP 133/79
[2017-10-27] MEDS: IBUPROFEN 600 MG (MOTRIN) TAB PO SCH ×2 (01:58→08:06)
[2017-10-27 03:53] VITALS: BP 97/49
[2017-10-27 06:31] LABS: BASOPHILS # (AUTO) 0.1 10^3/uL (0.0-0.1); BASOPHILS % (AUTO) 1 % (0-10); EOSINOPHILS # (AUTO) 0.2 10^3/uL (0.0-0.3); EOSINOPHILS % (AUTO) 2 % (0-10); HEMATOCRIT 31 % (35-52); HEMOGLOBIN 10.2 G/DL (11.5-16.0); LYMPHOCYTES # (AUTO) 2.9 X 10^3 (1.0-4.0); LYMPHOCYTES % (AUTO) 22 % (12-44); MEAN CORPUSCULAR HEMOGLOBIN 31 PG (25-34); MEAN CORPUSCULAR HGB CONC 33 G/DL (32-36); MEAN CORPUSCULAR VOLUME 93 FL (80-99); MEAN PLATELET VOLUME 10.5 FL (7.4-10.4); MONOCYTES # (AUTO) 1.1 X 10^3 (0.0-1.0); MONOCYTES % (AUTO) 9 % (0-12); NEUTROPHILS # (AUTO) 8.6 X 10^3 (1.8-7.8); NEUTROPHILS % (AUTO) 67 % (42-75); PLATELET COUNT 248 10^3/uL (130-400); RED CELL DISTRIBUTION WIDTH 13.6 % (10.0-14.5); WHITE BLOOD COUNT 12.9 10^3/uL (4.3-11.0)
--- NOTE | 2017-10-27 07:24 | Discharge Summary ---
Diagnosis/Chief Complaint Date of Admission Oct 25, 2017 at 22:35 Date of Discharge October 27, 2017 Discharge Date: Oct 27, 2017 Discharge Time: 10:00 Admission Diagnosis Admission Diagnosis 1. Intrauterine at 37 weeks Discharge Diagnosis 1. Intrauterine at 37 weeks Reason Hospital Visit SROM Discharge Summary-OBS Procedures 1. Epidural per anesthesia 2. Spontaneous vaginal delivery 3. Repair of midline episiotomy Discharge Physical Examination Allergies: Coded Allergies: divalproex sodium (Verified Allergy, Unknown, 06/23/17) latex (Verified Allergy, Unknown, 10/25/17) paroxetine (Verified Allergy, Unknown, 10/25/17) Vitals & I&Os Vital Signs Date Time Temp Pulse Resp B/P (MAP) Pulse Ox O2 Delivery O2 Flow Rate FiO2 10/27/17 03:53 96.9 88 16 97/49 (65) Room Air 10/26/17 23:45 97 General Appearance: No Acute Distress Respiratory: Clear to Auscultation Cardiovascular: Regular Rate Abdominal: Normal Bowel Sounds, Soft (With uterus firm) Skin: No Rashes Hospital Course Patient presented during the late p.m. of October 25, 2017 with spontaneous rupture of membranes. At that time clear fluid was noted. She was dilated to 2 cm with a regular contraction pattern of every 5-7 minutes. Patient received epidural per anesthesia. She did not require Pitocin augmentation. She continued to contract and eventually went on to completion. She eventually delivered over a midline episiotomy a term viable female with Apgars of 9 at 1 minute and 9 at 5 minutes. She had estimated blood loss of 200 mL. Her presenting hemoglobin was 11.0 with a hemoglobin day after delivery of 10.2. Following delivery patient had no complaints. Her uterus was firm. She had no seizure activity. She tolerated regular diet and was ambulatory without leg complaints there was no shortness of breath. Patient was felt ready for dismissal during the day of October 28, 2007. Pending Labs Laboratory Tests 10/27/17 06:14: White Blood Count 12.9, Red Blood Count 3.30, Hemoglobin 10.2, Hematocrit 31, Mean Corpuscular Volume 93, Mean Corpuscular Hemoglobin 31, Mean Corpuscular Hemoglobin Concent 33, Red Cell Distribution Width 13.6, Platelet Count 248, Mean Platelet Volume 10.5, Neutrophils (%) (Auto) 67, Lymphocytes (%) (Auto) 22 , Monocytes (%) (Auto) 9, Eosinophils (%) (Auto) 2, Basophils (%) (Auto) 1, Neutrophils # (Auto) 8.6, Lymphocytes # (Auto) 2.9, Monocytes # (Auto) 1.1, Eosinophils # (Auto) 0.2, Basophils # (Auto) 0.1 Discharge Instructions to patient/family Please see electronic discharge instructions given to patient. Discharge Medications Reviewed and agree with Discharge Medication list on patient's Discharge Instruction sheet Clinical Quality Measures DVT/VTE Risk/Contraindication: Risk Factor Score Per Nursin RFS Level Per Nursing on Admit: 1=Low/No VTE PPX ZOFIA ARGUETA MD Oct 27, 2017 07:24
[2017-10-27 07:54] VITALS: BP 98/58
[2017-10-27] MEDS ORDERED: IBUP-1773 PO (07:54)
--- NOTE | 2017-10-27 07:57 | Discharge Inst-Women's Service ---
Discharge Inst-Women's Serv Depart Medication/Instructions New, Converted or Re-Newed RX: Transmitted to Pharmacy Consults/Follow Up Additional Follow Up: Yes (with Dr Argueta at [facility] in 6 weeks) Activity Activity: Activity as Tolerated Driving Instructions: You May Drive Nothing Inside Vagina: No Burchinal (for 6 weeks) Diet Discharge Diet: Regular Diet Return to The Hospital For: as below Symptoms to Report to : Bleeding Excessive, Pain Increased, Fever Over 101 Degrees F, Vaginal Discharge Foul For Any Problems or Questions: Contact Your Physician ZOFIA ARGUETA MD Oct 27, 2017 07:57
== END 2017-10-27 13:10 | disposition home or self-care (01) | DRG 775 ==
LOC: LDRP 22:19 → WSo 22:19 → LDRP 22:35 → WSo 22:35 → LDRP 10-26 14:09
PROVIDERS: ADMIT Family Medicine; ATTEND Family Medicine
PROC: 0W8NXZZ Division of Female Perineum, External Approach (ICD-10-PCS; principal; 2017-10-26)
PROC: 10E0XZZ Delivery of Products of Conception, External Approach (ICD-10-PCS; principal; 2017-10-26)
DX: O99.354 Diseases of the nervous system complicating childbirth (principal); G40.909 Epilepsy, unspecified, not intractable, without status epilepticus; O99.52 Diseases of the respiratory system complicating childbirth; J45.909 Unspecified asthma, uncomplicated; Z3A.37 37 weeks gestation of pregnancy; Z37.0 Single live birth
CPT/HCPCS: 36415; 85025; 86762; 86850; 86900; 86901; 99212

== ENCOUNTER 2017-12-24 08:51 | Emergency (ER) | payer MEDICAID ==
[~2017-12-24] VITALS: Ht 160 cm; Wt 58.5 kg
[~2017-12-24 08:51] MED LIST changes: +IBUP-1773 PO
[2017-12-24] MEDS ORDERED: LIDOCAINE 1% INJ 20 ML 20 ML VIAL ONE (10:04)
--- NOTE | 2017-12-24 10:10 | ED Integumentary General ---
General Chief Complaint: Skin/Wound Problems Stated Complaint: LEFT GREAT TOE PAIN Nursing Triage Note: pt presents to ed with complaints of l big toe ingrown toel nail with pain and swelling. Source: patient, family Exam Limitations: no limitations History of Present Illness Date Seen by Provider: Dec 24, 2017 Time Seen by Provider: 10:05 Initial Comments This 22-year-old white female presents with an ingrown toenail that has been persistent through her left great toe despite attempts at home to resolve the issue. Patient denies fever, ascending lymphedema, or other complaint. Allergies and Home Medications Allergies Coded Allergies: divalproex sodium (Verified Allergy, Unknown, 06/23/17) latex (Verified Allergy, Unknown, 10/25/17) paroxetine (Verified Allergy, Unknown, 10/25/17) Home Medications Ibuprofen 600 Mg Tablet, 600 MG PO Q6H Prescribed by: ZOFIA ARGUETA on 10/27/17 0754 Vit No.124/Iron/FA 1 Each Tablet, 1 EACH PO DAILY, (Reported) Patient Home Medication List Home Medication List Reviewed: Yes Constitutional: no symptoms reported EENTM: no symptoms reported Respiratory: no symptoms reported Cardiovascular: no symptoms reported Gastrointestinal: no symptoms reported Genitourinary: no symptoms reported Musculoskeletal: no symptoms reported Skin: see HPI, other (ingrown) Psychiatric/Neurological: No Symptoms Reported Endocrine: No Symptoms Reported Hematologic/Lymphatic: No Symptoms Reported Past Tkdduap-Npsuvg-Aooamo Hx Past Med/Social Hx: Reviewed Nursing Past Med/Soc Hx Patient Social History Alcohol Use: Denies Use Recreational Drug Use: No Smoking Status: Never a Smoker Recent Foreign Travel: No Contact w/Someone Who Travel: No Recent Infectious Disease Expo: No Recent Hopitalizations: No Physical Abuse: No Sexual Abuse: No Mistreated: No Fear: No Immunizations Up To Date Tetanus Booster (TDap): Less than 5yrs PED Vaccines UTD: Yes Date of Influenza Vaccine: Feb 21, 2017 Seasonal Allergies Seasonal Allergies: Yes (roses) Past Medical History Surgeries: Yes (RT KNEE SCOPE, EGD) Orthopedic Respiratory: No Cardiac: No Neurological: Yes (essential tremors) Seizure Disorder Reproductive Disorders: No Genitourinary: No Gastrointestinal: No Musculoskeletal: No Endocrine: Yes (hypoglycemia) HEENT: No Cancer: No Psychosocial: Yes Depression Nursing Suicide Risk Score: 0 Integumentary: No Blood Disorders: No Family Medical History Alcoholism 19 FATHER Physical Exam Vital Signs Vital Signs - First Documented 12/24/17 09:10 Temp 98.6 Pulse 74 Resp 18 B/P (MAP) 96/61 (73) Pulse Ox 99 Capillary Refill : Less Than 3 Seconds General Appearance: WD/WN, no apparent distress HEENT: normal ENT inspection Neck: normal inspection Cardiovascular: normal peripheral pulses, regular rate, rhythm Respiratory: lungs clear Gastrointestinal: normal bowel sounds, non tender, soft Extremities: normal range of motion, non-tender Neurologic/Psychiatric: no motor/sensory deficits, alert, normal mood/affect, oriented x 3 Skin: other (ingrown right great toenail) Skin Problem Location: other (see above) Skin Problem Character: other (ingrown toenail) Progress/Results/Core Measures Results/Orders Vital Signs/I&O 12/24/17 09:10 Temp 98.6 Pulse 74 Resp 18 B/P (MAP) 96/61 (73) Pulse Ox 99 Blood Pressure Mean: 73 Progress Progress Note : Time: 10:21 Progress Note After a discussion of treatment options and with the patient and mother's approval 1 percent plain Xylocaine was used for a digital block to the right great toe. The patient's ingrown toenail was then excised with curved hemostat and iris scissors. The redundant soft tissue adjacent to the nail was removed with iris scissors. A dressing was then applied to the great toe. Departure Impression Primary Impression: Ingrown toenail of right foot with infection Disposition: 01 HOME, SELF-CARE Condition: Improved Departure-Patient Inst. Decision time for Depature: 10:22 Referrals: ZOFIA ARGUETA MD (PCP/Family) Primary Care Physician Patient Instructions: INGROWN TOENAIL-EXCISED Add. Discharge Instructions: Vicodin for pain. Warm soapy soaks. Close follow-up with your doctor. Return if any problems or questions. All discharge instructions reviewed with patient and/or family. Voiced understanding. WILMAR ECHEVERRIA MD Dec 24, 2017 10:09
[2017-12-24 10:31] VITALS: BP 105/57
== END 2017-12-24 10:31 | disposition home or self-care (01) ==
LOC: EDUNIT# 08:51 → ER 08:54
DX: L60.0 Ingrowing nail (principal); F32.9 Major depressive disorder, single episode, unspecified; G40.909 Epilepsy, unspecified, not intractable, without status epilepticus; Z98.890 Other specified postprocedural states; Z91.040 Latex allergy status; Z88.8 Allergy status to other drugs, medicaments and biological substances; Z88.1 Allergy status to other antibiotic agents
CPT/HCPCS: 10060

== ENCOUNTER 2019-07-31 14:58 | Emergency (ER) | payer MEDICAID ==
[~2019-07-31] VITALS: Ht 160 cm; Wt 66.5 kg
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
--- NOTE | 2019-07-31 15:41 | Diagnostic Imaging Report ---
Indication: Right knee pain 3 views of the right knee show no fracture, dislocation or other acute abnormalities. IMPRESSION: Negative right knee Dictated by: Dictated on workstation # [id number]
[2019-07-31 16:21] VITALS: BP 129/81
--- NOTE | 2019-07-31 16:21 | NUR ---
PT LEFT AFTER SIGNING AND RECIEVING PAPERWORK ON CRUTCHES. DID NOT SIGN DC PAPERWORK.
== END 2019-07-31 16:21 | disposition home or self-care (01) ==
LOC: EDUNIT# 14:58 → ER 15:00
DX: S80.01XA Contusion of right knee, initial encounter (principal); F32.9 Major depressive disorder, single episode, unspecified; G40.909 Epilepsy, unspecified, not intractable, without status epilepticus; Z91.040 Latex allergy status; Z88.8 Allergy status to other drugs, medicaments and biological substances; V47.5XXA Car driver injured in collision with fixed or stationary object in traffic accident, initial encounter
CPT/HCPCS: 73562

== ENCOUNTER 2020-05-17 10:28 | Emergency (ER) | payer MEDICAID ==
[~2020-05-17] VITALS: Ht 160 cm; Wt 72.5 kg
--- NOTE | 2020-05-17 11:16 | Diagnostic Imaging Report ---
INDICATION: Trauma, pain. EXAMINATION: Left wrist from 05/17/2020. FINDINGS: Three views of the wrist. Very vague lucency noted in the mid pole of the scaphoid, possibly a nutrient foramen but if there is point tenderness, a nondisplaced fracture difficult to exclude and follow-up could re-evaluate in 7 to 10 days. The remaining osseous structures are intact. No dislocations. IMPRESSION: 1. Lucency in the mid scaphoid, likely nutrient foramen, however please see above discussion and recommendations. Dictated by: Dictated on workstation # [id number]
--- NOTE | 2020-05-17 11:18 | Diagnostic Imaging Report ---
INDICATION: Trauma. Pain. EXAMINATION: Left forearm from 05/17/2020. FINDINGS: Two views of the forearm. There is no evidence for an acute fracture or dislocation. The joint spaces are well maintained. There is no significant soft tissue swelling. IMPRESSION: No acute process. Dictated by: Dictated on workstation # [id number]
--- NOTE | 2020-05-17 11:47 | ED Upper Extremity ---
General Chief Complaint: Trauma-Non Activation Stated Complaint: L ARM/WRIST INJ Nursing Triage Note: pt states she was going to get on her horse when the horse knocked her off causing her L wrist to be bent backwards, can not move fingers or wrist on L extremity without pain shooting all the way up her L arm Nursing Sepsis Screen: No Definite Risk History of Present Illness Date Seen by Provider: May 17, 2020 Time Seen by Provider: 11:00 Initial Comments 24-year-old female presents for injury to her left upper extremity. She was getting onto her horse when she fell landing on her arms. She denies any head injury or other injuries or complaints related to the fall. She has not taken any medication prior to arrival. She had a previous right knee scope. Onset: just prior to arrival Pain/Injury Location: left forearm, left wrist, left hand Method of Injury: fell Modifying Factors: Improves With Rest Allergies and Home Medications Allergies Coded Allergies: divalproex sodium (Verified Allergy, Unknown, 06/23/17) latex (Verified Allergy, Unknown, 10/25/17) paroxetine (Verified Allergy, Unknown, 10/25/17) Home Medications No Active Prescriptions or Reported Meds Patient Home Medication List Home Medication List Reviewed: Yes Review of Systems Constitutional: no symptoms reported, see HPI Musculoskeletal: see HPI; No back pain; joint pain, muscle pain (Left forearm and wrist); No neck pain All Other Systems Reviewed Negative Unless Noted: Yes Past Fhibvtq-Kjdyom-Bszomt Hx Past Med/Social Hx: Reviewed Nursing Past Med/Soc Hx Patient Social History Alcohol Use: Denies Use Recreational Drug Use: No 2nd Hand Smoke Exposure: No Recent Foreign Travel: No Contact w/Someone Who Travel: No Recent Infectious Disease Expo: No Recent Hopitalizations: No Immunizations Up To Date Tetanus Booster (TDap): Less than 5yrs PED Vaccines UTD: Yes Date of Influenza Vaccine: Feb 21, 2017 Seasonal Allergies Seasonal Allergies: Yes (roses) Past Medical History Surgeries: Yes (RT KNEE SCOPE, EGD) Orthopedic Respiratory: No Cardiac: No Neurological: Yes (essential tremors) Seizure Disorder Reproductive Disorders: No Genitourinary: No Gastrointestinal: No Musculoskeletal: No Endocrine: Yes (hypoglycemia) HEENT: No Cancer: No Psychosocial: Yes Depression Integumentary: No Blood Disorders: No Family Medical History Alcoholism 19 FATHER Physical Exam Vital Signs Vital Signs - First Documented 05/17/20 10:38 Temp 36.7 Pulse 103 Resp 18 B/P (MAP) 106/70 (82) Capillary Refill : Less Than 3 Seconds Height, Weight, BMI Height: 5'3.00" Weight: 129lbs. 0.0oz. 58.021807bu; 28.00 BMI Method:Stated General Appearance: WD/WN, no apparent distress HEENT: PERRL/EOMI, normal ENT inspection, TMs normal, pharynx normal Neck: non-tender, full range of motion, supple, normal inspection Cardiovascular: normal peripheral pulses, regular rate, rhythm Respiratory: chest non-tender, lungs clear, normal breath sounds Gastrointestinal: normal bowel sounds, non tender, soft Back: normal inspection, no CVA tenderness, no vertebral tenderness Shoulder: normal inspection, non-tender, normal ROM Elbow/Forearm: normal inspection, non-tender, normal ROM, Left Wrist: Yes normal inspection; No abrasions, No asymmetry; Yes bone tenderness (Generalized, left wrist. Trace tenderness at snuffbox.); No deformity; Yes limited ROM (Lacking full range of motion secondary to pain.), Yes pain, Yes soft tissue tenderness; No swelling Hand: normal inspection, soft tissue tenderness (Generalized left hand and fingers) Neurologic/Psychiatric: no motor/sensory deficits, alert, normal mood/affect, oriented x 3 Skin: normal color, warm/dry; No ecchymosis Progress/Results/Core Measures Results/Orders My Orders Orders - VANDANA REED Tramadol Tablet (Ultram Tablet) (05/17/20 11:51) Vital Signs/I&O 05/17/20 10:38 Temp 36.7 Pulse 103 Resp 18 B/P (MAP) 106/70 (82) 2 Blood Pressure Mean: 82 Progress Progress Note : Time: 11:00 Progress Note There I do not know with the overall patient seen and evaluated, will obtain x- ray of the left forearm and elbow. 1140 x-ray shows possible lucency in the left scaphoid otherwise no fractures noted on elbow or forearm. Since patient has tenderness in the snuffbox we will use a thumb spica splint and have her follow-up with orthopedics. Tramadol 50 mg orally for pain. Discharge instructions and return precautions reviewed with the patient. All questions answered. Diagnostic Imaging Diagonstic Imaging: Xray Plain Films/CT/US/NM/MRI: forearm Comments NAME: ELOY MONSON [facility] REC#: [id number] PT STATUS: REG ER : 1995 PHYSICIAN: BERNICE SOLORIO MD ADMIT DATE: 05/17/20/ER Signed Date of Exam:05/17/20 FOREARM, LEFT, 2 VIEWS INDICATION: Trauma. Pain. EXAMINATION: Left forearm from 05/17/2020. FINDINGS: Two views of the forearm. There is no evidence for an acute fracture or dislocation. The joint spaces are well maintained. There is no significant soft tissue swelling. IMPRESSION: No acute process. Dictated by: Dictated on workstation # [id number] Dict: 05/17/20 1111 Trans: 05/17/20 1134 AS6 [id number] Interpreted by: CATHY ROMAN MD Electronically signed by: CATHY ROMAN MD 05/17/20 1134 Reviewed: Reviewed by Me Diagonstic Imaging: Xray Plain Films/CT/US/NM/MRI: other (writst) Comments [place], [place] NAME: ELOY MONSON [facility] REC#: [id number] PT STATUS: REG ER : 1995 PHYSICIAN: BERNICE SOLORIO MD ADMIT DATE: 05/17/20/ER Signed Date of Exam:05/17/20 WRIST, LEFT, 3 VIEWS OR MORE INDICATION: Trauma, pain. EXAMINATION: Left wrist from 05/17/2020. FINDINGS: Three views of the wrist. Very vague lucency noted in the mid pole of the scaphoid, possibly a nutrient foramen but if there is point tenderness, a nondisplaced fracture difficult to exclude and follow-up could re-evaluate in 7 to 10 days. The remaining osseous structures are intact. No dislocations. IMPRESSION: 1. Lucency in the mid scaphoid, likely nutrient foramen, however please see above discussion and recommendations. Dictated by: Dictated on workstation # [id number] Dict: 05/17/20 1110 Trans: 05/17/20 1134 AS6 [id number] Interpreted by: CATHY ROMAN MD Electronically signed by: CATHY ROMAN MD 05/17/20 1134 Reviewed: Reviewed by Me Departure Impression Primary Impression: Fall Qualified Codes: W19.XXXA - Unspecified fall, initial encounter Additional Impressions: Contusion of left arm Qualified Codes: S40.022A - Contusion of left upper arm, initial encounter Scaphoid fracture Qualified Codes: S62.025A - Nondisplaced fracture of middle third of navicular [scaphoid] bone of left wrist, initial encounter for closed fracture Disposition: HOME, SELF-CARE Condition: Improved Departure-Patient Inst. Decision time for Depature: 11:40 Referrals: ZOFIA ARGUETA MD (PCP/Family) Primary Care Physician KEENAN DELUCA MD Patient Instructions: Contusion (DC), Wrist Fracture (DC) Add. Discharge Instructions: Wear wrist splint at all times, may remove to shower. Ice and elevated left arm, 20 min every 2 hours. Alternate Ibuprofen 600 mg and Tylenol 650 mg every [address] app[address] with Dr. Deluca for 1 week. There may be a fracture in your left scaphoid but a follow up x-ray will be necessary to confirm. Return to Emergency Dept for new, urgent health care needs. All discharge instructions reviewed with patient and/or family. Voiced understanding. Scripts No Active Prescriptions or Reported Meds Copy Copies To 1: KEENAN DELUCA MD, AMY ARNP May 17, 2020 11:47
[2020-05-17 12:33] VITALS: BP 106/73
== END 2020-05-17 12:34 | disposition home or self-care (01) ==
LOC: EDUNIT# 10:28 → ER 10:29
DX: S62.025A Nondisplaced fracture of middle third of navicular [scaphoid] bone of left wrist, initial encounter for closed fracture (principal); S40.022A Contusion of left upper arm, initial encounter; Z88.8 Allergy status to other drugs, medicaments and biological substances; Z91.040 Latex allergy status; V80.010A Animal-rider injured by fall from or being thrown from horse in noncollision accident, initial encounter
CPT/HCPCS: 73090; 73110

== ENCOUNTER 2020-06-17 14:01 | Day surgery (SDC) | payer MEDICAID ==
[2020-06-17] VITALS (10 sets, daily range): BP systolic 103–121; BP diastolic 57–74
[~2020-06-17] VITALS: Ht 160 cm; Wt 81.0 kg
[2020-06-17] MEDS ORDERED: fentaNYL INJECTION 100 MCG/2 ML AMP IVP ONE ×2 (14:30→20:15)
--- NOTE | 2020-06-17 14:34 | ED Lower Extremity ---
General Chief Complaint: Lower Extremity Stated Complaint: LOWER EXT INJ Nursing Triage Note: PT PRESENTS TO ED VIA EMS FROM SCENE OF INJURY FOR L ANKLE DEFORMITY/PAIN AFTER GETTING L FOOT TRAPED INTO THE STIRUP AND FALLING OFF HER HORSE WHEN RIDING. PT REPROTS SHE CRAWLED FROM THE THE FRONT YARD TO HER DRIVEWAY. PT REPORTS NECK PAIN AND L ANKLE PAIN. PT DENIES HITTING HEAD OR LOC. Nursing Sepsis Screen: No Definite Risk Source: patient Exam Limitations: no limitations History of Present Illness Date Seen by Provider: Jun 17, 2020 Time Seen by Provider: 14:25 Initial Comments Patient is a 25-year-old female who presents to the emergency department today with a chief complaint of left ankle injury after getting her foot stuck in her horse while her horse was bucking and getting thrown off the horse. Patient states she "jammed my neck". Patient denies any loss of consciousness. Patient states that she hit against an electric pole. Patient has significant pain to her left ankle. She denies back pain, chest pain, abdominal pain. She denies pain to her bilateral upper extremities and right lower extremity. She denies any numbness, tingling or weakness. All other review of systems reviewed and negative except as stated. Onset: just prior to arrival Pain/Injury Location: left ankle Method of Injury: fell Modifying Factors: Improves With Immobilization Allergies and Home Medications Allergies Coded Allergies: divalproex sodium (Verified Allergy, Unknown, 06/23/17) latex (Verified Allergy, Unknown, 10/25/17) paroxetine (Verified Allergy, Unknown, 10/25/17) Home Medications No Active Prescriptions or Reported Meds Patient Home Medication List Home Medication List Reviewed: Yes Review of Systems Constitutional: no symptoms reported Respiratory: no symptoms reported Cardiovascular: no symptoms reported Gastrointestinal: no symptoms reported Genitourinary: no symptoms reported : No Musculoskeletal: joint pain (left ankle pain) Skin: no symptoms reported Psychiatric/Neurological: No Symptoms Reported All Other Systems Reviewed Negative Unless Noted: Yes Past Lvnmawb-Pizjkc-Qokblh Hx Patient Social History Alcohol Use: Denies Use Recreational Drug Use: No Smoking Status: Never a Smoker 2nd Hand Smoke Exposure: No Recent Foreign Travel: No Contact w/Someone Who Travel: No Recent Infectious Disease Expo: No Recent Hopitalizations: No Immunizations Up To Date Tetanus Booster (TDap): Less than 5yrs PED Vaccines UTD: Yes Date of Influenza Vaccine: Feb 21, 2017 Seasonal Allergies Seasonal Allergies: Yes (roses) Past Medical History Surgeries: Yes (RT KNEE SCOPE, EGD) Orthopedic Respiratory: Yes Asthma Cardiac: No Neurological: Yes (essential tremors) Seizure Disorder Reproductive Disorders: No Genitourinary: No Gastrointestinal: No Musculoskeletal: No Endocrine: Yes (hypoglycemia) HEENT: No Cancer: No Psychosocial: Yes Depression Integumentary: No Blood Disorders: No Family Medical History Alcoholism 19 FATHER Physical Exam Vital Signs Vital Signs - First Documented 06/17/20 14:15 Temp 35.9 Pulse 86 Resp 16 B/P (MAP) 107/71 (83) Pulse Ox 97 Capillary Refill : Less Than 3 Seconds Height, Weight, BMI Height: 5'3.00" Weight: 129lbs. 0.0oz. 58.575374df; 30.00 BMI Method:Stated General Appearance: WD/WN, mild distress HEENT: PERRL/EOMI Neck: other (cervical collar in place; midline neck tenderness C5, 6, 7) Cardiovascular: regular rate, rhythm, no murmur Respiratory: chest non-tender, lungs clear, normal breath sounds, no respiratory distress, no accessory muscle use Gastrointestinal: normal bowel sounds, non tender, soft Back: no vertebral tenderness Hips: bilateral hip non-tender, bilateral hip normal inspection, bilateral hip normal range of motion, bilateral hip no evidence of injury Legs: bilateral leg non-tender, bilateral leg normal inspection, bilateral leg normal range of motion, bilateral leg no evidence of injury Knees: bilateral knee non-tender, bilateral knee normal inspection, bilateral knee normal range of motion, bilateral knee no evidence of injury Ankles: right ankle non-tender, right ankle normal inspection, right ankle normal range of motion, right ankle no evidence of injury; left ankle bone tenderness, left ankle deformity, left ankle limited range of motion, left ankle pain, left ankle soft tissue tenderness, left ankle swelling Feet: right foot non-tender, right foot normal inspection, right foot normal range of motion, right foot no evidence of injury; left foot limited range of motion Neurologic/Tendon: normal sensation, normal motor functions Neurologic/Psychiatric: no motor/sensory deficits, alert, normal mood/affect, oriented x 3 Skin: normal color, warm/dry Procedures/Interventions Splinting and Joint Reduction : Location: left ankle Pre-Proc Neuro Vasc Exam: normal Post-Proc Neuro Vasc Exam: normal Hand-Made Type: orthoglass Splint Application: Short Leg (left ankle; short leg posterior splint) Progress/Results/Core Measures Results/Orders My Orders Orders - BERNADINE WIGGINS MD Fentanyl Injection (Sublimaze Injection (06/17/20 14:30) Ct Cervical Spine Wo (06/17/20 14:28) Ankle, Left, 3 Views (06/17/20 14:28) Medications Given in ED Vital Signs/I&O 06/17/20 14:15 Temp 35.9 Pulse 86 Resp 16 B/P (MAP) 107/71 (83) Pulse Ox 97 Blood Pressure Mean: 83 Progress Progress Note : Time: 15:13 Progress Note Case discussed with Dr. Huerta on for orthopedics, will operatively repair this bimalleolar ankle fracture with fibular fracture today. The patient's n.p.o. status is [address] scan of the neck is still pending at this time patient remains in a c-collar. Diagnostic Imaging Diagonstic Imaging: Xray, CT Comments [facility] [place], [place] NAME: ELOY MONSON [facility] REC#: [id number] PT STATUS: REG ER : 1995 PHYSICIAN: BERNADINE WIGGINS MD ADMIT DATE: 06/17/20/ER Draft Date of Exam:06/17/20 ANKLE, LEFT, 3 VIEWS INDICATION: Left ankle injury. TIME OF EXAM: 02:46 p.m. TECHNIQUE: Three views of the left ankle were obtained. FINDINGS: There is a fracture of the suprasyndesmotic portion of the distal fibula with very minimal lateral displacement of the distal fibular fracture fragment. There is also a transversely oriented fracture through the medial malleolus. There also appears to be a posterior malleolar fracture of the distal tibia. There may be some slight widening of the medial clear space of the ankle mortise. No other fractures are seen. IMPRESSION: Suprasyndesmotic distal fibular fracture with medial and posterior malleolar tibial fractures, as described. Dictated on workstation # [id number] Dict: 06/17/20 1457 Trans: 06/17/20 1503 AS6 [id number] Interpreted by: APRYL BERUMEN MD Electronically signed by: [facility] [place] [place] NAME: ELOY MONSON [facility] REC#: [id number] PT STATUS: REG ER : 1995 PHYSICIAN: BERNADINE WIGGINS MD ADMIT DATE: 06/17/20/ER Draft Date of Exam:06/17/20 CT CERVICAL SPINE WO PROCEDURE: CT cervical spine without contrast. TECHNIQUE: Multiple contiguous axial images were obtained through the cervical spine without the use of intravenous contrast. Sagittal and coronal reformations were then performed. Auto Exposure Controls were utilized during the CT exam to meet ALARA standards for radiation dose reduction. INDICATION: Fall with posterior neck pain. FINDINGS: Curvature and alignment of the cervical spine is normal. No fracture or subluxation is identified. Prevertebral tissues are within normal limits. Odontoid is intact. IMPRESSION: No acute bony abnormality is detected. Dictated on workstation # [id number] Dict: 06/17/20 1515 Trans: 06/17/20 1521 AS6 [id number] Interpreted by: APRYL BERUMEN MD Electronically signed by: Departure Communication (Admissions) Time/Spoke to Admitting Phy: 15:[address]erta, will admit for operative repair Impression Primary Impression: Ankle fracture Qualified Codes: S82.892A - Other fracture of left lower leg, initial encounter for closed fracture Disposition: ADMITTED INPATIENT Condition: Stable Admissions Decision to Admit Reason: Admit from ER (General) Decision to Admit/Date: Jun 17, 2020 Time/Decision to Admit Time: 15:38 Departure-Patient Inst. Referrals: ZOFIA ARGUETA MD (PCP/Family) Primary Care Physician Scripts No Active Prescriptions or Reported Meds BERNADINE WIGGINS MD Jun 17, 2020 14:34
--- NOTE | 2020-06-17 15:05 | Diagnostic Imaging Report ---
INDICATION: Left ankle injury. TIME OF EXAM: 02:46 p.m. TECHNIQUE: Three views of the left ankle were obtained. FINDINGS: There is a fracture of the suprasyndesmotic portion of the distal fibula with very minimal lateral displacement of the distal fibular fracture fragment. There is also a transversely oriented fracture through the medial malleolus. There also appears to be a posterior malleolar fracture of the distal tibia. There may be some slight widening of the medial clear space of the ankle mortise. No other fractures are seen. IMPRESSION: Suprasyndesmotic distal fibular fracture with medial and posterior malleolar tibial fractures, as described. Dictated by: Dictated on workstation # [id number]
--- NOTE | 2020-06-17 15:22 | Diagnostic Imaging Report ---
PROCEDURE: CT cervical spine without contrast. TECHNIQUE: Multiple contiguous axial images were obtained through the cervical spine without the use of intravenous contrast. Sagittal and coronal reformations were then performed. Auto Exposure Controls were utilized during the CT exam to meet ALARA standards for radiation dose reduction. INDICATION: Fall with posterior neck pain. FINDINGS: Curvature and alignment of the cervical spine is normal. No fracture or subluxation is identified. Prevertebral tissues are within normal limits. Odontoid is intact. IMPRESSION: No acute bony abnormality is detected. Dictated by: Dictated on workstation # [id number]
--- NOTE | 2020-06-17 16:19 | NUR ---
C-COLLAR REMOVED BY DR WIGGINS AT THIS TIME.
[2020-06-17] MEDS ORDERED: fentaNYL INJECTION 100 MCG/2 ML AMP IVP PRN ×2 (16:30→21:15)
[2020-06-17] MEDS ORDERED: ONDANSETRON 4 MG/2 ML (SDV) Z0FRAN IVP PRN ×2 (17:30→20:15)
[2020-06-17] MEDS: NS IV 1000 ML 1,000 ML IV SCH (17:52)
--- NOTE | 2020-06-17 18:04 | History & Physical Orthopedic ---
History and Physical Subjective Date of Exam 06/17/20 Chief Complaint Fracture left ankle HPI/Events since last exam The patient is a 25-year-old white female who sustained injury to her left ankle when she was riding a horse this afternoon. The horse bucked her off in [facility] She struck a utility pole and then came down on her feet. She was unable to get up and walk. She is brought the emergency room where she is evaluated and x-rayed noted to have a fracture of her left ankle. She was splinted and admitted for surgical treatment. She denies any previous problems with her left ankle. She denies any other injuries but in the emergency room she was complaining of some neck pain and a CT scan was performed and reported as normal. She denies any loss of consciousness. She did not hit her head. She thinks her neck pain started from being jerked around when the horse was bucking Medical, Surgical History Previous surgeries include an EGD and arthroscopy of the right knee. She has also been in the hospital for a vaginal delivery of her daughter. Allergiesantidepressants Illnessesasthma requiring no treatment or inhalers Medicationnone Social History The patient is not and has one daughter Family History Family history reviewed and no additions or changes Review of Systems Review of systemssee above Allergies: Coded Allergies: divalproex sodium (Verified Allergy, Unknown, 06/23/17) latex (Verified Allergy, Unknown, 10/25/17) paroxetine (Verified Allergy, Unknown, 10/25/17) Home Meds No Active Prescriptions or Reported Meds Home Medication List Reviewed: Yes Objective Exam Constitutional: [The patient is a 25-year-old white female in mild distress from the left ankle fracture. She is alert and oriented] HEENT: [Within normal limits] Neck: [No pain with range of motion or palpation] Cardiovascular: [] Regular rhythm without murmurs Respiratory: [Clear] Gastrointestinal: [Within normal limits] Genitourinary: [Deferred] Skin: No skin changes [] Back/Spine: [No pain with palpation Extremities: []no pain to the upper extremities with full range of motion. No deformity. No pain] right lower extremity full range of motion. No deformity. No pain Left lower extremitythe left ankle splinted. She can move her toes and has normal sensation with good capillary refill. No pain at the knee. No effusion. No instability. No pain with gentle range of motion left hip Neurologic: [Grossly intact] Psychiatric: [] Hematologic/lymphatic/immunologic: [] Vital Signs Vital Signs Date Time Temp Pulse Resp B/P (MAP) Pulse Ox O2 Delivery O2 Flow Rate FiO2 06/17/20 16:56 37.5 97 18 121/74 (90) 98 Room Air 06/17/20 16:52 37.5 97 18 121/74 98 Room Air 06/17/20 16:45 90 16 113/62 98 06/17/20 14:15 35.9 86 16 107/71 (83) 97 Imaging X-rays were reviewed from the emergency room which shows a medial malleolar fracture which is displaced. There is widening in the medial clear space. There is widening of the syndesmosis. There is a transverse fracture approximately 5-6 cm above the ankle joint with minimal displacement. There is a small posterior malleolar fracture that's minimally displaced Assessment and Plan Assessment Displaced left ankle fracturetrimalleolar Problem List Displaced closed trimalleolar fracture left ankle Plan Treatment options were discussed with the patient. I explained to her that without surgical treatment she would not do well with instability, pain in probably early arthritis. I think surgical treatment is her best option as she has instability at the syndesmosis as well as a displaced fracture and medial malleolus. I talked her about the surgery which would be screw fixation of the medial malleolus, plate fixation of the fibula and then stabilization of the syndesmosis with syndesmotic screws. I don't feel that the posterior malleolus is given a require any treatment is it's a very small fragment and should reduce after fixation of the ankle. Plan on keeping her of her overnight for pain management and antibiotics. Continue ice elevation and splinting postop. She will need to be nonweightbearing for 6 weeks, partial weightbearing for 2 weeks and then full weightbearing at 8 weeks. Did talked her about syndesmosis screws that usually do not require removal Final Diagonsis Trimalleolar fracture left ankle with syndesmotic injury Level of the visit: Level 3 MARGARET AKBAR MD Jun 17, 2020 18:04
[2020-06-17] MEDS ORDERED: proPOfol 200 MG/20 ML (DIPRIVAN) VIAL IV ONE (18:46)
[2020-06-17] MEDS ORDERED: MIDAZOLAM 2 MG/2 ML (VERSED) VIAL ONE (18:46)
[2020-06-17] MEDS ORDERED: fentaNYL INJECTION 100 MCG/2 ML AMP ONE (18:46)
[2020-06-17] MEDS ORDERED: SEVOFLURANE (ULTANE) 15 ML INHAL SOLN ONE ×6 (18:46→20:40)
[2020-06-17] MEDS ORDERED: LIDOCAINE PF 2% 5 ML (XYLOCAINE) VIAL ONE (18:46)
[2020-06-17] MEDS ORDERED: ONDANSETRON 4 MG/2 ML (SDV) Z0FRAN ONE ×2 (18:46→19:40)
[2020-06-17] MEDS ORDERED: ceFAZolin INJECTION 2,000 MG ONE (18:49)
[2020-06-17] MEDS ORDERED: LIDOCAINE/EPI 1%-1:100,000 (XYLOCAINE) 20ML ONE (18:49)
[2020-06-17] MEDS ORDERED: NEOSPORIN + PAIN RELIEF CREAM 15 GM ONE (18:49)
[2020-06-17] MEDS ORDERED: 0.9% SODIUM CHLORIDE PF INJ 20 ML VIAL ONE (18:49)
[2020-06-17] MEDS: fentaNYL INJECTION 100 MCG/2 ML AMP IVP PRN ×3 (19:09→23:42)
--- NOTE | 2020-06-17 19:10 | NUR ---
LEFT THE FLOOR TO GO TO SURGERY.
[2020-06-17] MEDS: LACTATED RINGERS 1,000 ML IV PRN ×2 (19:13→20:15)
[2020-06-17] MEDS ORDERED: SCOPOLAMINE 1.5 MG (TRANSDERM-SCOP) PATCH ONE (19:23)
[2020-06-17] MEDS ORDERED: morphine INJ 10 MG/ML 1ML (SYR OR VIAL) IVP ONE (20:15)
[2020-06-17] MEDS ORDERED: PROMETHAZINE INJ 25 MG/ML (PHENERGAN) AMP IVP ONE (20:15)
[2020-06-17] MEDS ORDERED: HYDROmorphone 2 MG/ML VIAL (DILAUDID) IV ONE (20:15)
[2020-06-17] MEDS ORDERED: BUPIVACAINE 0.5% 30 ML (SENSORCAINE) VIAL ONE (20:18)
[2020-06-17] MEDS ORDERED: HYDROmorphone 2 MG/ML VIAL (DILAUDID) ONE (20:21)
[2020-06-17] MEDS ORDERED: ROCURONIUM 10 MG/ML 5 ML SYRINGE IV ONE (20:21)
[2020-06-17] MEDS ORDERED: NEO/POLY/BAC (NEOSPORIN) OINT 15 GM TUBE ONE (20:35)
--- NOTE | 2020-06-17 20:58 | Diagnostic Imaging Report ---
INDICATION: Left ankle fracture. FINDINGS: 45.8 seconds of fluoroscopy was utilized by Dr. Huerta during open reduction and internal fixation of the patient's previously demonstrated left ankle fractures. There has been placement of a plate and screws along the fibula as well as fixation of the patient's medial malleolar fracture with screws. There has been placement of two lower syndesmotic screws. IMPRESSION: Left ankle open reduction internal fixation. Postsurgical reduction appears anatomic. Dictated by: Dictated on workstation # [id number]
[2020-06-17] MEDS ORDERED: HYDROcodone/APAP 10 MG/325 MG (LORTAB) TAB PO PRN (21:15)
--- NOTE | 2020-06-17 21:31 | Operative Report - Ortho ---
Operative Report Surgeon (s)/Staffing Manager (s) Surgeon MARGARET AKBAR MD Staffing Manager n/a Pre-Operative Diagnosis trimalleolar fracture left ankle with syndesmosis disruption Post-Operative Diagnosis same Operative Report Date of Procedure: Jun 17, 2020 Name of Procedure Performed: Open reduction internal fixation of trimalleolar fracture left ankle Description & Findings The patient was seen preoperatively and treatment options were discussed with th e patient. She would like to proceed with surgical treatment. Surgical treatment was discussed and she has no further questions. The patient was taken to the operating room and placed on the OR table. After general anesthesia tourniquet was placed on the left thigh. The splint was removed from the left foot and ankle and no skin abrasions or wounds were noted. She had good cap refill and good pulses. She was given 2 g of Ancef IV in the OR. Timeout was performed. At this point the left foot and lower leg are prepped and draped in the usual sterile manner. The tourniquet was inflated did 250 mmHg after exsanguination of the lower leg with an Esmarch. Incision was placed laterally over the distal fibula. This was taken down through subjacent tissue. Bleeders are cauterized. The fascia was split overlying the distal fibula and the fracture was noted. It was a short oblique fracture. It could be easily reduced and stayed in place after reduction. This point a 10 hole plate was fashioned to fit the distal fibula. A screw was placed just proximal to the fracture. X-rays showed that the plate was too long distally so this was replaced with an 8 hole plate was fashioned to fit the distal fibula. This was appropriate length. A second screw was placed just distal to the fracture site. Image was used again visualize the fracture and plate position and good alignment and plate position was noted. This 0.2 additional screws were placed proximally all 3 bicortical and one just distal to the fracture bicortical as well. No further screws were placed distally as syndesmosis screws were going to be used after fixation medially. At this point incision was made over the medial malleolus. This was taken out through subjacent tissue. The saphenous vein was retracted anteriorly. The fracture was irrigated and debrided and no loose bodies were noted. There was a small fragment that went from superior anterior to anterior posterior. This could be easily reduced and held with a reduction clamp. This point guidewires were placed through the medial malleolar fracture cross fracture line in the distal tibia. Mrs. used to check position of the guidewires which were within the medial malleolus on the AP and mortise view. At this point the medial malleolar screws were placed over the guidewires after drilling. Both were 30 mm partially threaded 4.0 cancellus screws. This provided good fixation of the medial malleolus. Again the ankle was checked with fluoroscopy and the fracture was reduced anatomically both medial and laterally. No widening of the clear space medially. The mortise was symmetrical and no widening of the syndesmosis. Again there was noted be instability at the syndesmosis. At this 0.2 syndesmotic screws were placed proximally a centimeter and a half above the joint surface and then the next screw hole proximally. These were 4 cortical screws. The syndesmosis was held reduced as the fibula and tibia were drilled. 50 mm cortical screws were inserted which held the syndesmosis reduced. The ankle was then stressed under fluoroscopy and no widening of syndesmosis or medial clear space was noted. Permanent x-rays were obtained AP, lateral and mortise views. Excellent alignment was noted and excellent position of plate and screws. The posterior malleolar fracture was a very thin piece that reduced well without fixation. At this point the tourniquet was deflated after 44 minutes. There was minimal bleeding. Both wounds are irrigated with normal saline. Small veins are cauterized. The soft tissue overlying the distal fibula was closed with 0 Vicryl for the muscular layer then 20 for subcutaneous tissue. The skin was the n closed with gene. Medially the wound was irrigated and the subcutaneous tissues closed with 2-0 Vicryl and the skin with skin clips. Both wounds were injected with 0.5 percent Marcaine and 1 percent Xylocaine with epinephrine 5050 mixture. 40 mL's total. Approximately 30 lateral and 10 medially. Was redressed with antibiotic ointment, Adaptic and 4 x 4's and wrapped with web roll. Web roll from the tips of the toes to the upper or lower leg. Posterior and sugar tong splints were then applied which were wrapped with Justin wraps. The ankle was held at 90 while the splint hardened. Patient had a good dorsalis pedis pulse and good capillary refill after the procedure. Patient was then transferred to recovery in good condition talked procedure well Plan on observation overnight for pain medication and IV antibiotics. Plan on discharge tomorrow morning. Total blood loss50 mL Replacementnone Complicationsnone Tourniquet time 44 minutes at 250 mmHg n/a Anesthesia Type Gen. Estimated Blood Loss 50 mL Packing none. Specimen(s) collected/removed None MARGARET AKBAR MD Jun 17, 2020 21:31
--- NOTE | 2020-06-17 21:50 | NUR ---
PT to floor at this time. no nausea, no pain at this time, report received from Marii from recovery. stated Dr. Huerta was very pleased with how well pt tolerated surgery. pt in on the phone currently updating mother/family post surgery. Lt foot noted to be in a split cast with gauze and jovana wrap covering. dressing remaining in place at this time incision not assessed. pt awake and a&o at this time. will continue to monitor for changes.
[2020-06-18 00:11] VITALS: BP 118/56
[2020-06-18] MEDS: NS IV 1000 ML 1,000 ML IV SCH (01:38)
[2020-06-18] MEDS: HYDROcodone/APAP 5 MG/325 MG (LORTAB) TAB PO PRN ×2 (02:25→07:46)
[2020-06-18] MEDS: ceFAZolin 2 GM IV Premixed 50 ML IV SCH ×2 (02:58→09:39)
[2020-06-18 03:57] VITALS: BP 102/58
[2020-06-18] MEDS ORDERED: NS IV 1000 ML 1,000 ML IV SCH (04:15)
[2020-06-18 08:00] VITALS: BP 100/58
[2020-06-18] MEDS ORDERED: ASPIRIN 325 MG (5 GR) TABLET PO SCH (09:00)
[2020-06-18] MEDS ORDERED: IBUP-2473 PO (09:14)
[2020-06-18] MEDS ORDERED: MULT-1018 PO (09:14)
--- NOTE | 2020-06-18 09:15 | NUR ---
SPOKE WITH THE PT TO COMPLETE THE MED REC PT DENIES TAKING ANY PRESCRIPTION MEDICATIONS OTC MEDS: IBUPROFEN HAIR,SKIN AND NAILS
[2020-06-18] MEDS ORDERED: ACHD5005 PO (09:30)
--- NOTE | 2020-06-18 09:34 | Short Stay Summary ---
Discharge Summary Hospital Course Was the Problem List Reviewed?: Yes Final Diagnosis: trimalleolar fracture left ankle Hospital Course Date of Admission: Jun 17, 2020 at 15:44 Admission Diagnosis : Trimalleolar fracture left ankleclosed Family Physician/Provider: Cruzito Cortez MD Date of Discharge: 06/18/20 Discharge Diagnosis: Trimalleolar fracture left ankleclosed] Hospital Course: The patient injured her left ankle when she was thrown from her horse. She was seen in the emergency room and x-rays showed a fracture of the left ankle, trimalleolar, closed. She was splinted and scheduled for surgery. I saw the patient on the floor discuss treatment options. I recommended surgical treatment she would like to proceed. We discussed the procedure and she has no questions or concerns. The patient was taken operating room and under general anesthesia and an open reduction internal fixation of left ankle fracture. Fibula was fixed with a semitubular plate, the medial malleolus was fixed with 2 screws and the syndesmosis was stabilized with 2 second syndesmotic screws. The posterior malleolar was a small fragment that reduced well after fixation of the above Postop day number 1 the patient was afebrile. She had been up walking with cru tches nonweightbearing on the left and having minimal to no pain. She's been taking hydrocodone without any problems. She is ready for discharge. Continue with the hydrocodone and was prescribed number 40 which she can take 1-2 every 4 hours when necessary pain. Continue ice and elevation. Continue crutch ambulation nonweightbearing on the left. I also recommended she take aspirin 325 mg once a day 4 weeks for DVT prophylaxis. She received Ancef 2 g IV preop and also 2 doses postop prior to discharge [ ] Labs and Pending Lab Test: Laboratory Tests 06/17/20 19:10: Coronavirus 2019 ([facility]) Negative Home Meds Active Reported Hair, Skin & Nails Caplet (Multivit-Min/Folic Acid/Biotin) 1 Each Tablet 1 Each PO DAILY Ibuprofen 200 Mg Tablet 400-600 Mg PO Q8H PRN Assessment/Pt Instructions Crutch ambulation, nonweightbearing on the left. Continue ice and elevation. Hydrocodone for pain. Aspirin 325 mg once a day for DVT prophylaxis. Follow-up appointment on Friday 06/22 Discharge Instructions Discharge Diet: No Restrictions Activity as Tolerated: No Discharge Physical Examination Allergies: Coded Allergies: divalproex sodium (Verified Allergy, Unknown, 06/23/17) latex (Verified Allergy, Unknown, 10/25/17) paroxetine (Verified Allergy, Unknown, 10/25/17) Discharge Summary Date of Admission Jun 17, 2020 at 15:44 Date of Discharge Clinical Quality Measures DVT/VTE Risk/Contraindication: Risk Factor Score Per Nursin RFS Level Per Nursing on Admit: 4+=Very High MARGARET AKBAR MD Jun 18, 2020 09:34
--- NOTE | 2020-06-18 09:37 | Progress Note - Ortho ---
Progress Note Subjective Date of Exam 06/18/20 Chief Complaint POD#1 open reduction internal fixation trimalleolar fracture left ankle HPI/Events since last exam Natalia is doing well first postop day. Minimal to mild pain. Hydrocodone for pain is working well. She's been up ambulating with crutches nonweightbearing on the left without any problems Review of Systems Reviewed and no additions or changes Allergies: Coded Allergies: divalproex sodium (Verified Allergy, Unknown, 06/23/17) latex (Verified Allergy, Unknown, 10/25/17) paroxetine (Verified Allergy, Unknown, 10/25/17) Home Meds Active Scripts Hydrocodone/Acetaminophen (Hydrocodone-Acetamin 5-325 mg) 1 Each Tablet, 1 TAB PO Q4H PRN for PAIN-MODERATE (5-7), #40 TAB Prov:MARGARET AKBAR MD 06/18/20 Reported Medications Multivit-Min/Folic Acid/Biotin (Hair, Skin & Nails Caplet) 1 Each Tablet, 1 EACH PO DAILY, TAB 06/18/20 Ibuprofen (Ibuprofen) 200 Mg Tablet, 400-600 MG PO Q8H PRN for PAIN-MILD (1-4), TAB 06/18/20 Objective Exam Constitutional: [] HEENT: [] Neck: [] Cardiovascular: [] Respiratory: [] Gastrointestinal: [] Genitourinary: [] Skin: [] Back/Spine: [] Extremities: Normal sensation to the toes. Good capillary refill. She move her toes without pain. Splint is intact. [] Neurologic: [] Psychiatric: [] Hematologic/lymphatic/immunologic: [] Vital Signs Vital Signs Date Time Temp Pulse Resp B/P (MAP) Pulse Ox O2 Delivery O2 Flow Rate FiO2 06/18/20 08:00 37.0 103 14 100/58 (72) 95 Room Air 06/18/20 03:57 37.2 93 18 102/58 (73) 96 Room Air 06/18/20 00:11 37.2 123 22 118/56 (76) 96 Room Air 06/17/20 21:55 99 Room Air 06/17/20 21:54 36.7 102 16 105/66 (79) 99 Room Air 06/17/20 21:50 36.3 20 114/67 (83) 98 Room Air 06/17/20 21:50 Room Air 06/17/20 21:45 Room Air 06/17/20 21:40 20 110/69 (83) 98 Room Air 06/17/20 21:30 Room Air 06/17/20 21:30 20 110/67 (81) 99 Room Air 06/17/20 21:20 20 113/69 (84) 100 OxyMask 3 06/17/20 21:15 OxyMask 3 06/17/20 21:10 20 113/68 (83) 100 OxyMask 4 06/17/20 21:00 20 103/57 (72) 100 OxyMask 6 06/17/20 21:00 OxyMask 6 06/17/20 20:52 OxyMask 6 06/17/20 20:52 36.3 20 108/70 (83) 100 OxyMask 6 06/17/20 19:28 06/17/20 18:20 98 Room Air 06/17/20 16:56 37.5 97 18 121/74 (90) 98 Room Air 06/17/20 16:52 37.5 97 18 121/74 98 Room Air 06/17/20 16:45 90 16 113/62 98 06/17/20 14:15 35.9 86 16 107/71 (83) 97 I & O 06/18/20 07:00 Intake Total 1640 ml Balance 1640 ml Lab Results Laboratory Tests 06/17/20 19:10: Coronavirus 2018 ([place]) Negative Assessment and Plan Assessment Doing well first postop day Problem List Unchanged Plan Patient wants to go home. She has 1 more dose of Ancef that we'll give her early. She'll then be discharged after that. She's been up ambulating with crutches nonweightbearing without any problems. Prescription for hydrocodone 5/325 number 40 to take 1-2 every 4 hours when necessary pain. Continue ice and elevation. Follow-up in the office on 06/22 Aspirin 325 mg daily for DVT prophylaxis Final Diagonsis Trimalleolar fracture left ankle with syndesmosis disruption Level of the visit: Level 3 Clinical Quality Measures DVT/VTE Risk/Contraindication: Risk Factor Score Per Nursin RFS Level Per Nursing on Admit: 4+=Very High MARGARET AKBAR MD Jun 18, 2020 09:37
--- NOTE | 2020-06-18 10:04 | Physical Therapy Ortho Eval ---
PT Orthopedic Evaluation Type of Surgery left ankle fracture with repair Prior Level of Function Current Living Status: Other Family Locomotion (Upon Admit): Independent Subjective Subjective Patient agrees to PT. She reports she has used crutches in the past but does not have any. Entry Into Home: Stairs With Railing Steps Into Home: 2 Motor Control Motor Control: Motor Control WNL ROM ROM: WFL, except focal deficit Strength Strength: WFL Transfer SCALE: Activities may be completed with or without assistive devices. 5-Vowmzbfkcq-suebvtp completes the activity by him/herself with no assistance from a helper. 5-Set-up or Clean-up Assistance-helper sets up or cleans up; patient completes activity. [place] assists only prior to or following the activity. 4-Supervision or Touching Assistance-helper provides verbal cues and/or touchi ng/steadying and/or contact guard assistance as patient completes activity. Assistance may be provided throughout the activity or intermittently. 3-Partial/Moderate Assistance-helper does LESS THAN HALF the effort. [place] lifts, holds or supports trunk or limbs, but provides less than half the effort. 2-Substantial/Maximal Assistance-helper does MORE THAN HALF the effort. [place] lifts or holds trunk or limbs and provides more than half the effort. 4-Dlhqthibg-aalzgs does ALL the effort. Patient does none of the effort to complete the activity. Or, the assistance of 2 or more helpers is required for the patient to complete the activity. If activity was not attempted, code reason: 7-Patient Refused. 9-Not Applicable-not attempted and the patient did not perform the activity before the current illness, exacerbation or injury. 10-Not Attempted due to Environmental Limitations-(lack of equipment, weather restraints, etc.). 88-Not Attempted due to Medical Conditions or Safety Concerns. Transfers (B, C, W/C) (QC): 5 Gait Gait Assistive Device: Crutches Right Lower Extremity: Right Weight Bearing Status RLE: Full Weight Bearing Left Lower Extremity: Left Weight Bearing Status LLE: Non Weight Bearing Gait (QC): 4 Distance (QC): 3=150 ft Distance: 200' Gait Level of Assist: 4 (for safety) Treatment Rendered Treatment: Gait Train, Step Train Assessment/Goals Goal Time Frame: 1 Visit Safe Ambulation: Yes Plan Treatment Plan: Discharge PT/Family Agrees to Plan: Yes Time Time In: 845 Time Out: 858 Total Billed Treatment Time: 13 Billed Treatment Time 1 visit EVLow 13 min ZEKE TURNER PT Jun 18, 2020 10:04
[2020-06-18 12:33] VITALS: BP 100/58
--- NOTE | 2020-06-18 14:23 | Anesthesia-General Post-Op ---
General Patient Condition Mental Status/LOC: Same as Preop Cardiovascular: Satisfactory Nausea/Vomiting: Absent Respiratory: Satisfactory Pain: Controlled Complications: Absent Post Op Complications Complications None Follow Up Care/Instructions Patient Instructions None needed. Anesthesia/Patient Condition Patient Condition Patient was seen this morning in post-op rounds and she was doing well, no complaints, stable vital signs, no apparent adverse anesthesia problems. She is already discharged to home. LIZETTE THAKKAR DO Jun 18, 2020 14:23
== END 2020-06-18 15:34 | disposition home or self-care (01) ==
LOC: EDUNIT# 14:01 → ER 14:03 → EDLOC 15:44 → 4TH 15:44 → UNDOADMIN 15:44 → SDC 15:44 → UNDODISIN 06-18 15:34
PROVIDERS: ATTEND Orthopaedic Surgery
DX: S82.852A Displaced trimalleolar fracture of left lower leg, initial encounter for closed fracture (principal); J45.909 Unspecified asthma, uncomplicated; F32.9 Major depressive disorder, single episode, unspecified; E16.2 Hypoglycemia, unspecified; Z79.899 Other long term (current) drug therapy; Z91.040 Latex allergy status; Z88.8 Allergy status to other drugs, medicaments and biological substances; Z20.828 Contact with and (suspected) exposure to other viral communicable diseases
CPT/HCPCS: 27822; 29515; 72125; 73610; 76000; 87081; 96374; 96376; 97161; 99284; U0002; 87635

== ENCOUNTER → 2020-06-22 | Outpatient (CLI) | payer MEDICAID ==
[~2020-06-22] MED LIST changes: +ACHD5005 PO; +IBUP-2473 PO; +MULT-1018 PO
== END ==
LOC: ORTHO 08:53
PROVIDERS: ATTEND Orthopaedic Surgery
DX: S82.842A Displaced bimalleolar fracture of left lower leg, initial encounter for closed fracture (principal); X58.XXXA Exposure to other specified factors, initial encounter
CPT/HCPCS: 29405

== ENCOUNTER → 2020-07-06 | Outpatient (CLI) | payer MEDICAID ==
--- NOTE | 2020-07-06 10:15 | Diagnostic Imaging Report ---
INDICATION: Bimalleolar ankle fracture. TECHNIQUE: AP, oblique, and lateral views of the left ankle were obtained. FINDINGS: Since 06/17/2020, there has been internal fixation of the distal fibular shaft fracture with lateral fibular plate and syndesmotic screws. There is mild residual offset at the distal fibular shaft fracture site. There is good reduction of the medial malleolar fracture with two partially threaded cannulated screws in place. There is minimal offset and cortical irregularity of the articular surface along the medial malleolus. No new fracture or malalignment is identified. IMPRESSION: Good partial reduction of the bimalleolar fractures without complication related to ankle hardware. Dictated by: Dictated on workstation # [id number]
== END ==
LOC: ORTHO 09:15
PROVIDERS: ATTEND Orthopaedic Surgery
DX: S82.842A Displaced bimalleolar fracture of left lower leg, initial encounter for closed fracture (principal); X58.XXXA Exposure to other specified factors, initial encounter
CPT/HCPCS: 29405; 73610

== ENCOUNTER → 2020-07-17 | Outpatient (CLI) | payer MEDICAID ==
--- NOTE | 2020-07-17 15:32 | Diagnostic Imaging Report ---
INDICATION: Follow-up ankle fractures. TIME OF EXAM: 02:13 p.m. COMPARISON: Correlation is made with prior radiographs of 07/06/2020. FINDINGS: Three views of the left ankle demonstrate lateral plate and numerous screws transfixing the distal fibular fracture. There are two fully threaded syndesmotic screws. There are also two partially-threaded screws transfixing the transversely oriented medial malleolar fracture. Ankle mortise is well maintained. Talar dome is smooth. Fracture lines remain clearly visible. Alignment is anatomic. IMPRESSION: Satisfactory postoperative changes to the left ankle fractures, as described. Fracture lines remain clearly visible. Dictated by: Dictated on workstation # [id number]
== END ==
LOC: ORTHO 13:33
PROVIDERS: ATTEND Orthopaedic Surgery
DX: S82.842D Displaced bimalleolar fracture of left lower leg, subsequent encounter for closed fracture with routine healing (principal); X58.XXXD Exposure to other specified factors, subsequent encounter
CPT/HCPCS: 73610

== ENCOUNTER 2022-10-30 10:17 | Emergency (ER) | payer MEDICAID ==
[~2022-10-30 10:17] MED LIST changes: -SULF1TAB35 PO
[2022-10-30] MEDS ORDERED: ACETAMINOPHEN 500 MG TAB (TYLENOL) PO STA (12:23)
--- NOTE | 2022-10-30 12:27 | ED Head Injury ---
General Chief Complaint: Head/Cervical Problems Stated Complaint: DIZZINESS/LOSS OF EYE SIGHT Nursing Triage Note: PT AMB TO [facility] WITH C/O GARZA, DIZZY AND SHARP PAIN TO BACK OF HEAD. PAIN HAS BEEN GOING ON FOR 2 WEEKS SINCE GETTING A CONCUSSION. PT HAS NOT SEEN ANY DOCTOR OR TAKEN ANY MEDICATION TO HELP WITH THE PAIN (VANDANA REED) History of Present Illness Date Seen by Provider: Oct 30, 2022 Time Seen by Provider: 11:50 Initial Comments 27-year-old female presents for headache and neck pain that is been present for the last 2 weeks. She reports she was getting into her grandfathe [employer] truck when she struck the top of her head causing immediate onset of pain, vision changes intermittently, nausea, and weakness. She has had a concussion in the past after being thrown off a horse, with associated lumbar spine fractures. She denies any neck injuries in the past but does report slight decrease in range of motion with her neck and occasional neck pain. She tried Tylenol and ibuprofen immediately after the head injury and had minimal improvement then she ran out. She has not been seen by her primary care provider since this injury. She recently moved back to [place] and has not established but has appt at [facility] in mid-November. Occurred: other (2 weeks ago) Location: frontal Method of Injury: direct blow Loss of Consciousness: no loss of consciousness Associated Systoms: No Chest Pain, No Cough, No Diaphoresis, No Fever/Chills; Headaches; No Loss of Appetite; Malaise, Nausea/Vomiting; No Rash, No Seizure, No Shortness of Air, No Syncope, No Weakness (VANDANA REED) Allergies and Home Medications Allergies Coded Allergies: divalproex sodium (Verified Allergy, Unknown, 06/23/17) latex (Verified Allergy, Unknown, 10/25/17) paroxetine (Verified Allergy, Unknown, 10/25/17) Patient Home Medication List Home Medication List Reviewed: Yes (VANDANA REED) Hydrocodone/Acetaminophen (Hydrocodone-Acetamin 5-325 mg) 1 Each Tablet, 1 TAB PO Q4H PRN for PAIN-MODERATE (5-7) Prescribed by: MARGARET AKBAR MD on 06/18/20 0930 Ibuprofen (Ibuprofen) 200 Mg Tablet, 400-600 MG PO Q8H PRN for PAIN-MILD (1-4), (Reported) Entered as Reported by: VIOLETA HARE on 06/18/20913 Multivit-Min/Folic Acid/Biotin (Hair, Skin & Nails Caplet) 1 Each Tablet, 1 EACH PO DAILY, (Reported) Entered as Reported by: VIOLETA HARE on 06/18/20913 Ondansetron (Ondansetron Odt) 4 Mg Tab.rapdis, 4 MG PO Q6H PRN for NA USEA/VOMITING Prescribed by: VANDANA REED on 10/30/22 1341 Review of Systems Review of Systems Constitutional: see HPI Gastrointestinal: see HPI; No abdominal pain, No constipation, No diarrhea; nausea; No vomiting Psychiatric/Neurological: See HPI, Headache (VANDANA REED) All Other Systems Reviewed Negative Unless Noted: Yes (VANDANA REED) Past Iwqsbze-Gvkhdt-Zzghco Hx Patient Social History Tobacco Use?: No Use of E-Cig and/or Vaping dev: No Substance use?: No Alcohol Use?: No Pt feels they are or have been: No (VANDANA REED) Immunizations Up To Date Tetanus Booster (TDap): Less than 5yrs PED Vaccines UTD: Yes Influenza Vaccine Up-to-Date: No; Not Current First/Initial COVID19 Vaccinat: YES Second COVID19 Vaccination Jalil: YES (VANDANA REED) Seasonal Allergies Seasonal Allergies: Yes (brian) (VANDANA REED) Past Medical History Surgery/Hospitalization HX: DENIES Surgeries: Yes (RT KNEE SCOPE, EGD) Orthopedic Respiratory: Yes Asthma Currently Using CPAP: No Currently Using BIPAP: No Cardiac: No Neurological: Yes (essential tremors) Seizure Disorder Last Menstrual Period: Oct 17, 2022 Reproductive Disorders: No Genitourinary: No Gastrointestinal: No Musculoskeletal: No Endocrine: Yes (hypoglycemia) HEENT: No Cancer: No Psychosocial: Yes Depression Integumentary: No Blood Disorders: No (VANDANA REED) Family Medical History Reviewed Nursing Family Hx (VANDANA REED) Alcoholism 19 FATHER Physical Exam Vital Signs Vital Signs - First Documented 10/30/22 10/30/22 10:27 14:01 Temp 37.0 Pulse 78 Resp 16 B/P (MAP) 121/79 (93) Pulse Ox 100 O2 Delivery Room Air (BRUEGGEMANN,CAMILO T MD) Vital Signs Capillary Refill : (VANDANA REEDP) Height, Weight, BMI Height: 5'3.00" Weight: 129lbs. 0.0oz. 58.954351et; 31.64 BMI Method:Stated General Appearance: WD/WN, no apparent distress HEENT: PERRL/EOMI, normal ENT inspection, TMs normal, pharynx normal, photophobia Neck: non-tender, full range of motion, supple, normal inspection, tender lateral (bilat with ROM and palpation); No tender midline Cardiovascular: normal peripheral pulses, regular rate, rhythm Respiratory: chest non-tender, lungs clear, normal breath sounds Gastrointestinal: normal bowel sounds, non tender, soft Back: normal inspection, no CVA tenderness, no vertebral tenderness Extremities: normal range of motion, non-tender, normal inspection, no pedal edema, normal capillary refill Psychiatric: alert, oriented x 3; No depressed affect Crainal Nerves: normal hearing, normal speech Coordination/Gait: normal finger to nose, normal gait Motor/Sensory: no motor deficit, no sensory deficit Skin: normal color, warm/dry (DEREKVANDANA) Progress/Results/Core Measures Results/Orders Lab Results Laboratory Tests Test 10/30/22 12:26 10/30/22 12:50 Range/Units Urine Color YELLOW Urine Clarity SL CLOUDY Urine pH 6.5 5-9 Urine Specific South Range 1.015 L 1.016-1.022 Urine Protein NEGATIVE NEGATIVE Urine Glucose (UA) NEGATIVE NEGATIVE Urine Ketones 3+ H NEGATIVE Urine Nitrite NEGATIVE NEGATIVE Urine Bilirubin 1+ H NEGATIVE Urine Urobilinogen 1.0 < = 1.0 MG/DL Urine Leukocyte Esterase 1+ H NEGATIVE Urine RBC (Auto) 2+ H NEGATIVE Urine RBC 2-5 H /HPF Urine WBC 2-5 /HPF Urine Squamous Epithelial Cells 5-10 /HPF Urine Crystals NONE /LPF Urine Bacteria NEGATIVE /HPF Urine Casts NONE /LPF Urine Mucus NEGATIVE /LPF Urine Culture Indicated NO Urine Opiates Screen NEGATIVE NEGATIVE Urine Oxycodone Screen NEGATIVE NEGATIVE Urine Methadone Screen NEGATIVE NEGATIVE Urine Propoxyphene Screen NEGATIVE NEGATIVE Urine Barbiturates Screen NEGATIVE NEGATIVE Ur Tricyclic Antidepressants Screen NEGATIVE NEGATIVE Urine Phencyclidine Screen NEGATIVE NEGATIVE Urine Amphetamines Screen NEGATIVE NEGATIVE Urine Methamphetamines Screen NEGATIVE NEGATIVE Urine Benzodiazepines Screen NEGATIVE NEGATIVE Urine Cocaine Screen NEGATIVE NEGATIVE Urine Cannabinoids Screen NEGATIVE NEGATIVE White Blood Count 7.3 4.3-11.0 10^3/uL Red Blood Count 4.47 3.80-5.11 10^6/uL Hemoglobin 14.1 11.5-16.0 g/dL Hematocrit 41 35-52 % Mean Corpuscular Volume 91 80-99 fL Mean Corpuscular Hemoglobin 32 25-34 pg Mean Corpuscular Hemoglobin Concent 35 32-36 g/dL Red Cell Distribution Width 12.1 10.0-14.5 % Platelet Count 408 H 130-400 10^3/uL Mean Platelet Volume 9.3 9.0-12.2 fL Immature Granulocyte % (Auto) 0 % Neutrophils (%) (Auto) 50 42-75 % Lymphocytes (%) (Auto) 39 12-44 % Monocytes (%) (Auto) 8 0-12 % Eosinophils (%) (Auto) 1 0-10 % Basophils (%) (Auto) 1 0-10 % Neutrophils # (Auto) 3.7 1.8-7.8 10^3/uL Lymphocytes # (Auto) 2.8 1.0-4.0 10^3/uL Monocytes # (Auto) 0.6 0.0-1.0 10^3/uL Eosinophils # (Auto) 0.1 0.0-0.3 10^3/uL Basophils # (Auto) 0.1 0.0-0.1 10^3/uL Immature Granulocyte # (Auto) 0.0 0.0-0.1 10^3/uL Sodium Level 140 135-145 MMOL/L Potassium Level 3.6 3.6-5.0 MMOL/L Chloride Level 104 98-107 MMOL/L Carbon Dioxide Level 23 21-32 MMOL/L Anion Gap 13 5-14 MMOL/L Blood Urea Nitrogen 14 7-18 MG/DL Creatinine 0.75 0.60-1.30 MG/DL Estimat Glomerular Filtration Rate 113 BUN/Creatinine Ratio 19 Glucose Level 87 70-105 MG/DL Calcium Level 9.7 8.5-10.1 MG/DL Corrected Calcium 9.4 8.5-10.1 MG/DL Total Bilirubin 1.3 H 0.1-1.0 MG/DL Aspartate Amino Transf (AST/SGOT) 14 5-34 U/L Alanine Aminotransferase (ALT/SGPT) 10 0-55 U/L Alkaline Phosphatase 69 40-136 U/L Total Protein 7.4 6.4-8.2 GM/DL Albumin 4.4 3.2-4.5 GM/DL (CAMILO SONI MD) Blood Pressure Mean: 93 Progress Progress Note : Time: 11:50 Progress Note patient assessed, will obtain CT head and neck. NS 1 L per IV, Zofran 4 mg IV and Tylenol. 1240 patient reports trace improvement in her headache. CT and Labs reviewed. 1300 we will give Toradol 30 mg IV. Patient reports nausea improved after the Zofran. 1315 discharge instructions and return precautions reviewed with the patient and her significant other. All questions answered. (VANDANA REED) Diagnostic Imaging Diagonstic Imaging: CT Plain Films/CT/US/NM/MRI: c-spine, other Comments NAME: [facility] REC#: [id number] PT STATUS: REG ER : 1995 PHYSICIAN: VANDANA REED ADMIT DATE: 10/30/22/ER Draft Date of Exam:10/30/22 CT HEAD/CERVICAL SPINE WO CLINICAL INDICATION: Patient with headache, dizziness and sharp pain to back of head. The pain has been going on for 2 weeks since getting a concussion. Patient has pain all over neck worse on the left side. Exam: Head CT without IV contrast with sagittal and coronal reformations. Axial CT scan of the cervical spine with sagittal and coronal reformations. Auto Exposure Controls were utilized during the CT exam to meet ALARA standards for radiation dose reduction. Comparison: CT scan the cervical spine without contrast dated 06/17/2020. Findings: Head CT: There is no evidence of acute cerebral infarct, intracranial hemorrhage, or gross mass effect. The brain parenchymal volume appears appropriate for patient's age. There is normal gamble-white matter distinction. There is no significant midline shift or herniation. There is no evidence of hydrocephalus. The basal cisterns are unremarkable. The skull, extracranial soft tissue, and orbits are unremarkable. The paranasal sinuses are unremarkable. Temporal bones show no significant abnormality. Cervical spine: No acute cervical spine fracture or dislocation. There is straightening of the cervical spine posture which is nonspecific. There is no prevertebral soft tissue swelling. Possible small anterior disk bulge at the C3-C4 and C4-C5 levels. There is no significant neck soft tissue abnormality. Visualized upper lung mxa are clear. Impression: 1: There is no evidence of acute intracranial process. There is no skull fracture. There is no intracranial hemorrhage. 2: There is no acute cervical spine fracture. 3: There is straightening of the cervical spine posture which is nonspecific but may be seen with patient positioning or muscle spasms. 4: There appears to be small anterior disk bulges at the C3-C4 and C4-C5 levels. Dictated on workstation # [id number] Dict: 10/30/22 1256 Trans: 10/30/22 1311 [facility] [id number] Interpreted by: NILA NASSAR MD Electronically signed by: Reviewed: Reviewed by Me (VANDANA REED) Departure Impression Primary Impression: Contusion of head Qualified Codes: S00.03XA - Contusion of scalp, initial encounter Additional Impressions: Concussion without loss of consciousness Qualified Codes: S06.0X0A - Concussion without loss of consciousness, initial encounter Neck pain Nausea Dehydration Disposition: 01 HOME, SELF-CARE Condition: Improved Departure-Patient Inst. Decision time for Depature: 13:05 (VANDANA REED) Referrals: [facility],LOCAL PHYSICIAN (PCP) Primary Care Physician Patient Instructions: Concussion, Adult (DC) Add. Discharge Instructions: Alternate between ibuprofen 600 mg and Tylenol 650 mg every 4 hours. Brain rest, limit time on phones, tablets, computers or TV. Wear sunglasses when around bright screens or outside in sunlight. Alternate heat and ice to your neck. Follow-up at [facility] walk-in or with your primary care there if symptoms or not improving or worsen. Increase water intake, 16 ounces every 2 hours while awake. Return to the emergency department for new, urgent healthcare needs. All discharge instructions reviewed with patient and/or family. Voiced understanding. Scripts Ondansetron (Ondansetron Odt) 4 Mg Tab.rapdis 4 MG PO Q6H PRN for NAUSEA/VOMITING, #10 TAB 0 Refills Prov: VANDANA REED 10/30/22 Work/School Note: Work Release Form Date Seen in the Emergency Department: Oct 30, 2022 Return to Work: Oct 31, 2022 Restrictions: No Restrictions ATTENDING PHYSICIAN NOTE: I was physically present as attending physician in the emergency department during the care of this patient, but I was not directly involved in the decision making or delivery of care for this patient. (CAMILO SONI MD) VANDANA REED Oct 30, 2022 12:27 CAMILO SONI MD Nov 01, 2022 07:07
[2022-10-30] MEDS ORDERED: ONDANSETRON 4 MG/2 ML (SDV) Z0FRAN IVP ONE (12:30)
[2022-10-30] MEDS ORDERED: NS IV 1000 ML 1,000 ML IV SCH (12:30)
[2022-10-30 12:32] LABS: CLARITY,URINE SL CLOUDY; COLOR,URINE YELLOW; GLUCOSE, URINE (UA) NEGATIVE (NEGATIVE); KETONES,URINE 3+ (NEGATIVE); LEUKOCYTE ESTERASE ,URINE 1+ (NEGATIVE); NITRITE,URINE NEGATIVE (NEGATIVE); PH,URINE 6.5 (5-9); PROTEIN,URINE NEGATIVE (NEGATIVE)
[2022-10-30 12:39] LABS: BILIRUBIN,URINE 1+ (NEGATIVE)
[2022-10-30 12:40] LABS: BACTERIA,URINE NEGATIVE /HPF
[2022-10-30 12:53] LABS: AMPHETAMINE SCREEN, URINE NEGATIVE (NEGATIVE); BARBITURATE SCREEN URINE NEGATIVE (NEGATIVE); BENZODIAZEPINES SCREEN URINE NEGATIVE (NEGATIVE); CANNABINOID SCREEN, URINE NEGATIVE (NEGATIVE); COCAINE SCREEN URINE NEGATIVE (NEGATIVE); METHADONE STAT NEGATIVE (NEGATIVE); OPIATE SCREEN URINE NEGATIVE (NEGATIVE); OXYCODONE STAT NEGATIVE (NEGATIVE); PROPOXYPHENE STAT NEGATIVE (NEGATIVE); TRICYCLIC ANTIDEPRESSANTS SCRE NEGATIVE (NEGATIVE)
[2022-10-30 13:02] LABS: BASOPHILS # (AUTO) 0.1 10^3/uL (0.0-0.1); BASOPHILS % (AUTO) 1 % (0-10); EOSINOPHILS # (AUTO) 0.1 10^3/uL (0.0-0.3); EOSINOPHILS % (AUTO) 1 % (0-10); HEMATOCRIT 41 % (35-52); HEMOGLOBIN 14.1 g/dL (11.5-16.0); LYMPHOCYTES # (AUTO) 2.8 10^3/uL (1.0-4.0); LYMPHOCYTES % (AUTO) 39 % (12-44); MEAN CORPUSCULAR HEMOGLOBIN 32 pg (25-34); MEAN CORPUSCULAR HGB CONC 35 g/dL (32-36); MEAN CORPUSCULAR VOLUME 91 fL (80-99); MEAN PLATELET VOLUME 9.3 fL (9.0-12.2); MONOCYTES # (AUTO) 0.6 10^3/uL (0.0-1.0); MONOCYTES % (AUTO) 8 % (0-12); NEUTROPHILS # (AUTO) 3.7 10^3/uL (1.8-7.8); NEUTROPHILS % (AUTO) 50 % (42-75); PLATELET COUNT 408 10^3/uL (130-400); WHITE BLOOD COUNT 7.3 10^3/uL (4.3-11.0)
[2022-10-30 13:12] LABS: ALBUMIN 4.4 GM/DL (3.2-4.5)
--- NOTE | 2022-10-30 13:12 | Diagnostic Imaging Report ---
CLINICAL INDICATION: Patient with headache, dizziness and sharp pain to back of head. The pain has been going on for 2 weeks since getting a concussion. Patient has pain all over neck worse on the left side. Exam: Head CT without IV contrast with sagittal and coronal reformations. Axial CT scan of the cervical spine with sagittal and coronal reformations. Auto Exposure Controls were utilized during the CT exam to meet ALARA standards for radiation dose reduction. Comparison: CT scan the cervical spine without contrast dated 06/17/2020. Findings: Head CT: There is no evidence of acute cerebral infarct, intracranial hemorrhage, or gross mass effect. The brain parenchymal volume appears appropriate for patient's age. There is normal gamble-white matter distinction. There is no significant midline shift or herniation. There is no evidence of hydrocephalus. The basal cisterns are unremarkable. The skull, extracranial soft tissue, and orbits are unremarkable. The paranasal sinuses are unremarkable. Temporal bones show no significant abnormality. Cervical spine: No acute cervical spine fracture or dislocation. There is straightening of the cervical spine posture which is nonspecific. There is no prevertebral soft tissue swelling. Possible small anterior disk bulge at the C3-C4 and C4-C5 levels. There is no significant neck soft tissue abnormality. Visualized upper lung max are clear. Impression: 1: There is no evidence of acute intracranial process. There is no skull fracture. There is no intracranial hemorrhage. 2: There is no acute cervical spine fracture. 3: There is straightening of the cervical spine posture which is nonspecific but may be seen with patient positioning or muscle spasms. 4: There appears to be small anterior disk bulges at the C3-C4 and C4-C5 levels. Dictated by: Dictated on workstation # [id number]
[2022-10-30 13:13] LABS: POTASSIUM 3.6 MMOL/L (3.6-5.0)
[2022-10-30 13:14] LABS: CALCIUM 9.7 MG/DL (8.5-10.1)
[2022-10-30 13:15] LABS: TOTAL PROTEIN 7.4 GM/DL (6.4-8.2)
[2022-10-30 13:17] LABS: BILIRUBIN,TOTAL 1.3 MG/DL (0.1-1.0)
[2022-10-30 13:19] LABS: CREATININE SERUM 0.75 MG/DL (0.60-1.30)
[2022-10-30] MEDS ORDERED: KETOROLAC 30 MG/ML VIAL IVP STA (13:37)
[2022-10-30] MEDS ORDERED: ONDA4TAB11 PO (13:41)
[2022-10-30 14:01] VITALS: BP 100/68
== END 2022-10-30 14:04 | disposition home or self-care (01) ==
LOC: EDUNIT# 10:17 → ER 10:22
DX: S06.0X0A Concussion without loss of consciousness, initial encounter (principal); S00.93XA Contusion of unspecified part of head, initial encounter; E86.0 Dehydration; M54.2 Cervicalgia; Z91.040 Latex allergy status; W22.8XXA Striking against or struck by other objects, initial encounter; Y92.812 Truck as the place of occurrence of the external cause
CPT/HCPCS: 36415; 70450; 72125; 80053; 80306; 81000; 84703; 85025